=== PATIENT | male | born 1950 | race Caucasian/White ===

== ENCOUNTER 2020-02-01 02:37 | Inpatient (IN) | payer MEDICARE, SELFPAY ==
[2020-02-01] VITALS (15 sets, daily range): BP systolic 104–156; BP diastolic 52–86; PULSE 74–115; RESP 17–25; TEMP 36.4–38; O2SAT 92–99; BMI 22.3; BMI 11.0
--- NOTE | ~2020-02-01 | XR_ITS ---
EXAMINATION: XR chest 2V DATE: 02/01/2020 03:18 INDICATION: Transient alteration of awareness TECHNIQUE: frontal and lateral views of the chest were obtained. COMPARISON: Chest radiograph dated 08/29/2019 FINDINGS: The lungs remain clear with no focal airspace opacities, pulmonary edema, pleural effusion or pneumot horax. The cardiomediastinal silhouette is normal. Calcified left hilar lymph nodes consistent with o ld granulomatous disease. IMPRESSION: 1. No acute cardiopulmonary disease. Reviewed, dictated and finalized at location A.
--- NOTE | ~2020-02-01 | CT_ITS ---
EXAMINATION: CT brain wo con DATE: 02/01/2020 03:12 INDICATION: Altered mental status. TECHNIQUE: Computed tomography (CT) of the head was performed without intravenous contrast. Sagittal and coronal reconstructions were performed. The mA was adjusted according to patient size. Iterative reconstruction technique was employed. The dose-length product was 605.33 mGy-cm. COMPARISON: head CT dated 08/29/2019 FINDINGS: No acute intracranial hemorrhage, acute infarction or abnormal extra axial fluid collection. Unchange d symmetric increased prominence of the ventricles and to lesser degree the sulci. No mass/mass effec t. The orbits, paranasal sinuses and mastoid air cells are normal. IMPRESSION: 1. No acute intracranial process. 2. Chronic enlargement of the ventricles are proportionate the sulci which could be related to centra l predominant volume loss or normal pressure hydrocephalus (NPH: clinical triad ataxia/gait disturban ce, dementia, urinary incontinence). Reviewed, dictated and finalized at location A. IMPRESSION: 1. No acute intracranial process. 2. Chronic enlargement of the ventricles are proportionate the sulci which coul d be related to central predominant volume loss or normal pressure hydrocephalu s (NPH: clinical triad ataxia/gait disturbance, dementia, urinary incontinence) .
--- NOTE | 2020-02-01 02:41 | ED.AMS ---
HPI - Altered Mental Status General Chief Complaint: Altered Mental Status Stated Complaint: ams Time Seen by Provider: 02/01/20 02:41 Source: EMS Mode of arrival: EMS Limitations: altered mental status History of Present Illness HPI narrative: Patient is a 69-year-old male with a history of Parkinson's disease, dementia who presents for evaluation of worsening mentation. Per EMS report, they were called to [facility] where the patient resides as he is known to be pleasantly confused, but has increased lethargy, sleepiness, possibly an episode of decreased responsiveness. Per EMS, patient is intermittently oriented to person, not to place or time. Patient has had recent negative coronavirus testing. EMS glucose was in the 200s. Stable vital signs. Additional history from the patient cannot be obtained due to clinical condition. Related Data Home Medications Medication Instructions Recorded Confirmed Brilinta 90 mg PO BID 08/29/19 08/29/19 aspirin 81 mg PO DAILY 08/29/19 08/29/19 atorvastatin 40 mg PO HS 08/29/19 08/29/19 carbidopa-levodopa 1 tablet PO BID 08/29/19 08/29/19 carvedilol 6.25 mg PO BID 08/29/19 08/29/19 glimepiride 4 mg PO BID 08/29/19 08/29/19 metformin 1,000 mg PO BID 08/29/19 08/29/19 pantoprazole 40 mg PO DAILY 08/29/19 08/29/19 Allergies Allergy/AdvReac Type Severity Reaction Status Date / Time No Known Allergies Allergy Verified 02/01/20 03:10 Review of Systems Review of Systems: Narrative: Unable to obtain, secondary to clinical condition and altered mental status PMFSH Past Medical History Medical History Arthritis Diabetes Frequency of urination GERD (gastroesophageal reflux disease) Gum disease HLD (hyperlipidemia) [place] (hard of hearing) HTN (hypertension) Parkinson's disease Surgical History Surgical History History of cardiac catheterization With stents History of tonsillectomy Age 18 Skin lesion of back Removed Family History Family History Mother Diabetes mellitus Family history of cardiovascular disease Father Diabetes mellitus Family history of cardiovascular disease Social History Social History Smoking status: Never smoker Alcohol intake: former Substance use type: does not use Gender identity (if verbalized by the patient): Male Exam Narrative: Exam Narrative: GENERAL: Ill-appearing, awake, alert, slightly disheveled looking HEAD: Normocephalic, atraumatic. EYES: PERRLA and EOMI. ENT: Nares clear, no rhinorrhea or epistaxis. Mucous membranes moist. NECK: Supple. CHEST: Upper airway rhonchi, no respiratory distress, breathing even and non labored HEART: Tachycardic rate, sinus rhythm ABDOMEN:Non distended, non tender EXTREMITIES: Normal range of motion. No edema. SKIN: Warm, dry, no rash, pale. NEURO:No focal deficits. Alert and oriented x1. Able to state to nurse he is [facility], unable to provide orientation to place for pr at time of assessment. Course Vital Signs Vital signs: Vital Signs Temperature 37.1 C 02/01/20 02:43 Pulse Rate 109 H 02/01/20 02:43 Respiratory Rate 17 02/01/20 02:43 Blood Pressure 129/74 02/01/20 02:43 Pulse Oximetry 97 02/01/20 02:43 Temperature 37.1 C 02/01/20 02:43 Pulse Rate 106 H 02/01/20 03:31 Respiratory Rate 25 H 02/01/20 03:31 Blood Pressure 131/72 02/01/20 03:31 Pulse Oximetry 96 02/01/20 03:31 MDM - Altered Mental Status MDM Narrative Medical decision making narrative: Patient presenting for evaluation of worsening mentation at care facility. At the time of initial assessment, ABCs are intact and vital signs are stable. Patient is mildly tachycardic, afebrile. No hypotension. Patient is intermittently oriented to person and place.
--- NOTE | 2020-02-01 02:52 | ECG_ITS ---
Measurements Intervals [place] Rate: 108 P: 57 MA: 171 QRS: 15 QRSD: 86 T: 124 QT: 319 QTc: 428 Interpretive Statements SINUS TACHYCARDIA DELAYED PRECORDIAL R/S TRANSITION CONSIDER INFERIOR INFARCT, AGE INDETERMINATE ST-T WAVE ABNORMALITY IN HIGH LATERAL LEADS- CONSIDER ISCHEMIA BASELINE ARTIFACT- I, II, AVR, AVF ABNORMAL ECG Electronically Signed On 02-01-2020 7:14:02 CDT by Tai Lara D.O.
[2020-02-01] MEDS: SODIUM CHLORIDE 0.9% IV 1,000 ML 999 ML IV CONT (03:02)
[2020-02-01 03:38] LABS: Basophils Percent Auto 0.3 % (0.2-1.2); Eosinophils Percent Auto 0.1 % (0-4.4); Hematocrit 43.9 % (42.0-52.0); Hemoglobin 14.7 g/dL (14.0-18.0); Immature Granulocyte Absolute 0.12 K/mm3 (0.00-0.031); Immature Granulocyte Percent A 0.8 % (0-0.5); Lymphocytes Absolute Auto 0.94 K/mm3 (0.9-3.2); Lymphocytes Percent Auto 6.6 % (18.3-44.2); Mean Corpuscular HGB Conc 33.5 g/dl (32-36); Mean Corpuscular Hemoglobin 30.4 pg (26-34); Mean Corpuscular Volume 90.7 fl (80-100); Mean Platelet Volume 11.5 fl (7.4-10.4); Monocytes Absolute Auto 1.2 K/mm3 (0.1-0.6); Monocytes Percent Auto 8.1 % (2.6-8.5); Neutrophils Percent Auto 84.1 % (45.5-73.1); Platelet Count Result 197 k/mm3 (150-375); Red Blood Count 4.84 M/mm3 (4.6-6.20); Red Cell Distribution Width 13.6 % (11.5-14.5); White Blood Count 14.3 K/mm3 (4.5-10.0)
[2020-02-01 03:45] LABS: Add Urine Microscopic? YES; Appearance Urine Cloudy (Clear); Bacteria Urine Trace /hpf; Bilirubin Urine Negative (Negative); Blood Urine 3+ (Negative); Glucose Urine UA 2+ mg/dL (Negative); Ketones Urine Trace mg/dL (Negative); Leukocyte Esterase Ur Trace LEU/UL (Negative); Nitrate Urine Positive (Negative); Protein Urine 3+ mg/dL (Negative); RBC Urine >75 /hpf (0-2); Squamous Epithelial Cell Urine Moderate /hpf (Few); Urobilinogen Urine Negative mg/dL (<2.0); WBC Urine >75 /hpf
[2020-02-01 03:46] LABS: Color Urine Brown (Yellow)
[2020-02-01 03:47] LABS: INR 1.1
[2020-02-01 03:48] LABS: Partial Thromboplastin Time 30.1 SECONDS (22.3-36.8)
[2020-02-01 03:49] LABS: Ammonia < 9 umol/L (9-30); Lactic Acid Reflex 1.8 mmol/L (0.7-2.1)
[2020-02-01 03:50] LABS: Alanine Aminotransferase 17 U/L (4-50); Albumin Level 4.1 g/dL (3.5-5.1); Alkaline Phosphatase 83 U/L (38-126); Aspartate Amino Transferase 19 U/L (17-59); Bilirubin,Total 0.9 mg/dL (0.2-1.3); Blood Urea Nitrogen 14 mg/dL (9-20); Calcium 10.8 mg/dL (8.4-10.2); Carbon Dioxide 30 mmol/L (22-30); Chloride 100 mmol/L (98-107); Estimated CRCL calculation 77 ml/min; Estimated Glomerular Filt Rate > 60; Glucose 233 mg/dL (75-110); Potassium 4.4 mmol/L (3.4-5.0); Sodium 138 mmol/L (137-145)
--- NOTE | 2020-02-01 07:51 | ADMGEN ---
This patient, Toni Bernal, was admitted to [facility] Surg Room 332-01 at 0530. Patient/family oriented to hospital policies and general routines including ID bracelet, bed and alarms, visiting hours, pain management, procedures, bathroom and other care routines, personal items, smoking policy, room service/diet, and visiting hours. Valuables list has been completed. Information on how to activate the Rapid Response Team has been discussed. Patient/Family are encouraged to report perceived risks to care and to ask questions if they do not understand what they are told or what they should do.
[2020-02-01] MEDS: GLIMEPIRIDE 2 MG TABLET 4 MG PO ×2 (09:54→17:16)
[2020-02-01] MEDS: PANTOPRAZOLE 40 MG TABLET PO (09:54)
[2020-02-01] MEDS: metFORMIN HCL 500 MG TABLET 1000 MG PO ×2 (09:54→17:15)
[2020-02-01] MEDS: ASPIRIN 81 MG ENTERIC TABLET PO (09:55)
[2020-02-01] MEDS: POLYSACCHARIDE IRON COMPLEX 150 MG CAPSULE PO ×2 (09:55→17:15)
[2020-02-01] MEDS: carvediloL 6.25 MG TABLET PO ×2 (09:55→22:05)
[2020-02-01] MEDS: TICAGRELOR 90 MG TABLET PO ×2 (09:55→17:16)
[2020-02-01] MEDS: INSULIN ASPART (*BKC) 100 UNITS/ML SUB-Q ×3 (10:20→17:11)
--- NOTE | 2020-02-01 10:22 | PM.IMHP ---
H&P: HPI History of Present Illness Chief complaint: Lethargy, brown urine Narrative: Date of Service is 02/01/20 1000 The supervising physician for this history and physical is Dr. Zeynep Pacheco. Mr. Bernal is a 69-year-old male with history of Parkinson's disease with dementia, coronary artery disease, hypertension, hyperlipidemia and cio-[id number] type 2 diabetes mellitus presented to the ED from [facility] for evaluation of lethargy and brown-colored urine. This history is obtained mainly from the EMR as the patient is too confused to relay any details. It is mentioned that, given his dementia, he is normally pleasantly confused but talkative with [facility] at [facility]. He was noted to become more lethargic here recently and staff at the [facility] noted his urine was brown in color. Onset of symptoms is unclear. Urinalysis is grossly abnormal and routine labs demonstrate leukocytosis with WBC 14,300. Blood cultures and urine cultures were obtained and he was started on Rocephin empirically in the ED. Sepsis criteria was met on arrival with leukocytosis, tachycardia; suspected source is UTI. Chest x-ray demonstrates no acute cardiopulmonary abnormality. It is noted in the EMR that he recently tested negative for COVID-19, however I am not able to find any documentation of such. He was tested for COVID-19 early this morning in the ED. Patient is being admitted for altered mental status, sepsis, and UTI. Called and discussed update with TJ, patient's nephew and POA. Review of Systems Review of Systems: ROS unobtainable: Yes unobtainable due to mental status PMFSH Past Medical History Medical History (Updated 02/01/20 @ 12:48 by Xenia Zelaya PA-C) Arthritis Diabetes Frequency of urination GERD (gastroesophageal reflux disease) Gum disease HLD (hyperlipidemia) [place] (hard of hearing) HTN (hypertension) Parkinson's disease Surgical History Surgical History History of cardiac catheterization With stents History of tonsillectomy Age 18 Skin lesion of back Removed Family History Family History Mother Diabetes mellitus Family history of cardiovascular disease Father Diabetes mellitus Family history of cardiovascular disease Social History Social History Smoking status: Never smoker Alcohol intake: never Substance use: never Substance use type: does not use Gender identity (if verbalized by the patient): Male Spiritual care concerns: No Agree to blood products: Yes Meds Home Medications and Allergies Home Medications Medication Instructions Recorded Confirmed Type Brilinta 90 mg PO BID 08/29/19 02/01/20 History aspirin 81 mg PO DAILY 08/29/19 02/01/20 History atorvastatin 40 mg PO QPM 08/29/19 02/01/20 History carbidopa-levodopa [Sinemet] 1 tablet PO TIDWM 08/29/19 02/01/20 History carvedilol 6.25 mg PO BID 08/29/19 02/01/20 History glimepiride 4 mg PO BID 08/29/19 02/01/20 History metformin 1,000 mg PO BID 08/29/19 02/01/20 History pantoprazole 40 mg PO DAILY 08/29/19 02/01/20 History celecoxib [Celebrex] 200 mg PO QPM 02/01/20 02/01/20 History cyanocobalamin (vitamin B-12) 1,000 mcg IM DAILY 02/01/20 02/01/20 History fexofenadine [[place] Allergy] 60 mg PO Q12H 02/01/20 02/01/20 History polysaccharide iron complex 150 mg PO BID 02/01/20 02/01/20 History [Poly-Iron] Allergies Allergy/AdvReac Type Severity Reaction Status Date / Time No Known Allergies Allergy Verified 02/01/20 03:10 Vital Signs Vital Signs - 24 hr 02/01/20 02:43 02/01/20 03:18 02/01/20 03:31 Temperature 98.7 F Pulse Rate 109 H 106 H Respiratory Rate 17 25 H Blood Pressure 129/74 143/82 H 131/72 Pulse Oximetry 97 97 96 02/01/20 04:01 02/01/20 04:31 02/01/20 05:20 Temperature
[2020-02-01] MEDS: LACTATED RINGERS 1,000 ML 100 ML IV CONT ×2 (10:31→21:23)
[2020-02-01 10:40] LABS: Glucose Point of Care 224 (65-105)
[2020-02-01] MEDS: CARBIDOPA/LEVODOPA 25/100 MG TABLET 1 TABLET PO ×2 (11:58→17:17)
[2020-02-01 12:54] LABS: Glucose Point of Care 230 (65-105)
[2020-02-01 13:28] LABS: SARS-CoV-2 RNA PCR Negative
[2020-02-01 17:14] LABS: Glucose Point of Care 246 (65-105)
[2020-02-01] MEDS: CELECOXIB 200 MG CAPSULE PO (17:15)
[2020-02-01] MEDS: ATORVASTATIN 40 MG TABLET PO (17:16)
[2020-02-01 21:41] LABS: Glucose Point of Care 223 (65-105)
[2020-02-02] VITALS (9 sets, daily range): BP systolic 113–132; BP diastolic 57–67; PULSE 80–87; RESP 16–18; TEMP 36.5–37; O2SAT 96–97
[2020-02-02 06:20] LABS: Basophils Percent Auto 0.1 % (0.2-1.2); Eosinophils Absolute Auto 0.2 K/mm3 (0-0.3); Eosinophils Percent Auto 1.6 % (0-4.4); Hematocrit 34.4 % (42.0-52.0); Hemoglobin 11.4 g/dL (14.0-18.0); Immature Granulocyte Absolute 0.07 K/mm3 (0.00-0.031); Immature Granulocyte Percent A 0.7 % (0-0.5); Immature Platelet Fraction Pct 2.4 % (0.9-11.2); Lymphocytes Absolute Auto 0.91 K/mm3 (0.9-3.2); Lymphocytes Percent Auto 9.5 % (18.3-44.2); Mean Corpuscular HGB Conc 33.1 g/dl (32-36); Mean Corpuscular Hemoglobin 30.2 pg (26-34); Mean Platelet Volume 11.5 fl (7.4-10.4); Monocytes Absolute Auto 0.6 K/mm3 (0.1-0.6); Monocytes Percent Auto 6.6 % (2.6-8.5); Neutrophils Absolute Auto 7.8 K/mm3 (1.3-6.7); Neutrophils Percent Auto 81.5 % (45.5-73.1); Platelet Count Result 128 k/mm3 (150-375); Red Blood Count 3.78 M/mm3 (4.6-6.20); Red Cell Distribution Width 13.5 % (11.5-14.5); White Blood Count 9.6 K/mm3 (4.5-10.0)
[2020-02-02 06:33] LABS: Blood Urea Nitrogen 11 mg/dL (9-20); Calcium 9.8 mg/dL (8.4-10.2); Carbon Dioxide 28 mmol/L (22-30); Chloride 103 mmol/L (98-107); Estimated CRCL calculation 104 ml/min; Estimated Glomerular Filt Rate > 60; Glucose 161 mg/dL (75-110); Magnesium 1.4 mg/dL (1.6-2.3); Potassium 3.7 mmol/L (3.4-5.0); Sodium 135 mmol/L (137-145)
[2020-02-02] MEDS: CARBIDOPA/LEVODOPA 25/100 MG TABLET 1 TABLET PO ×3 (08:31→17:04)
[2020-02-02] MEDS: TICAGRELOR 90 MG TABLET PO ×2 (08:31→17:04)
[2020-02-02] MEDS: ASPIRIN 81 MG ENTERIC TABLET PO (08:31)
[2020-02-02] MEDS: PANTOPRAZOLE 40 MG TABLET PO (08:31)
[2020-02-02] MEDS: metFORMIN HCL 500 MG TABLET 1000 MG PO ×2 (08:31→17:05)
[2020-02-02] MEDS: GLIMEPIRIDE 2 MG TABLET 4 MG PO ×2 (08:32→17:04)
[2020-02-02] MEDS: carvediloL 6.25 MG TABLET PO ×2 (08:32→21:21)
[2020-02-02 08:41] LABS: Glucose Point of Care 148 (65-105)
[2020-02-02] MEDS: MAGNESIUM SULFATE 3GM/D5W100ML 3 GM/100 ML BAG IVPB (09:19)
[2020-02-02] MEDS: POLYSACCHARIDE IRON COMPLEX 150 MG CAPSULE PO ×2 (09:20→17:05)
[2020-02-02] MEDS: POTASSIUM PHOS/SODIUM PHOS 250 MG TABLET PO ×2 (09:20→17:05)
[2020-02-02 11:56] LABS: Glucose Point of Care 195 (65-105)
--- NOTE | 2020-02-02 12:18 | CONS_ITS ---
DATE OF CONSULTATION: 02/02/2020 HISTORY OF PRESENT ILLNESS: A 69-year-old has been admitted to [facility] for the complaint of lethargy with brown urine. The patient has additional history of: 1. Parkinson's disease. 2. Dementia. 3. Coronary artery disease. 4. Hypertension. 5. Hyperlipidemia. 6. Non insulin-dependent type 2 diabetes mellitus. He was admitted to the hospital on transfer from the [facility] for the evaluation of lethargy and brown-colored urine. On initial evaluation, he definitely was confused because of the underlying diagnosis, notedly lethargic. His UA was grossly abnormal. Blood cultures and urine cultures were drawn, and he was started on Rocephin. Chest x-ray was negative and he was recently tested negative for COVID-19 as well. He has ongoing history of multiple medical problems as mentioned in the chart, particularly arthritis, diabetes mellitus, bladder dysfunction, GERD, lung disease, hyperlipidemia, hard of hearing, hypertension, and Parkinson's disease. Neuro consultation has been obtained because of the ongoing diagnosis of Parkinson's disease. SOCIAL HISTORY: He is not a smoker and not a drinker. MEDICATIONS: At the time of admission in addition to all his other medication he was taking carbidopa levodopa 1 tablet 3 times a day. ALLERGIES: HE IS NOT ALLERGIC TO ANY MEDICATION. PHYSICAL EXAMINATION: VITAL SIGNS: On evaluation, he was afebrile with pulse 109, respirations 17, blood pressure 129/74, pulse ox 97%. HEENT: Head normocephalic with no cranial bruits. Ear, nose, throat examination normal. NECK: Supple with no cervical bruits. HEART: Regular with no murmur. LUNGS: Clear to auscultation. ABDOMEN: Soft with normal bowel sounds. SKIN: Normal. NEUROLOGICAL: He was awake, alert, but was unable to give any account of what happened to him. His speech was rather slow, hesitant. Pupils round, regular. George of vision full. Extraocular movements full with no nystagmus, no upward gaze limitation. Face symmetrical. Tongue midline. Uvula midline. Motor examination revealed him to have cogwheeling in upper and lower extremities. Reflexes were sluggish. Plantars were downgoing. There was no evidence of gross cerebellar deficit, though the exam was rather limited. IMPRESSION: Ongoing history of Parkinson's disease for which the patient is taking the Sinemet, that is carbidopa levodopa 1 tab 3 times a day. Treatment will be continued as such. In addition, all other medication will follow through and see if any adjustment necessary. FABI MORTON M.D. TICKET ATTENDANT TICKET ATTENDANT D I MT: Saurabh
[2020-02-02] MEDS: LACTATED RINGERS 1,000 ML 100 ML IV CONT (12:42)
--- NOTE | 2020-02-02 12:58 | P.PNIM_ITS ---
Progress Note: A&P Assessment and Plan (1) Acute UTI: Code(s): N39.0 - Urinary tract infection, site not specified Status: Acute Assessment and Plan: * Patient presents with increased confusion, lethargy, brown-colored urine from the correction. * Urine culture grew E coli, sensitivities pending. Blood cultures with no growth to date. * Continue Rocephin (day 3). (2) Sepsis: Qualifiers: Sepsis acute organ dysfunction status: without acute organ dysfunction Sepsis type: sepsis due to unspecified organism Qualified Code(s): A41.9 - Sepsis, unspecified organism Code(s): A41.9 - Sepsis, unspecified organism Status: Acute Assessment and Plan: * Evident on arrival by tachycardia, leukocytosis. Afebrile so far today. Monitor vital signs and urine output. * Lactic acid within normal limits. COVID-19 testing negative. (3) Delirium: Code(s): R41.0 - Disorientation, unspecified Status: Resolved Assessment and Plan: * Increased lethargy superimposed on baseline dementia, felt to be secondary to above. Now improved today. * CT brain shows no acute intracranial findings, chronic enlargement of ventricles could be related to central predominant volume loss or ? NPH. He does not have a previous diagnosis of NPH but has had longstanding dementia with Parkinson's disease. These CT findings may just be consistent with his known diagnoses. * Neurology consulted - appreciate recommendations. * Neurologist is Dr Jayshree Macias at [facility] and was last seen there May 2019 - requested to obtain records. (4) Parkinson's disease: Code(s): G20 - Parkinson's disease Status: Chronic Assessment and Plan: * With dementia. Reportedly his baseline is alert and oriented to self, intermittently oriented to place. * Maintained on his home carbidopa-levodopa. PT/OT note that he is functioning at his baseline. 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 Continue home metformin and glimepiride, monitor Accu- Cheks and cover with SSI. Check A1c in AM. (6) Hypertension: Qualifiers: Hypertension type: essential hypertension Qualified Code(s): I10 - Essential (primary) hypertension Code(s): I10 - Essential (primary) hypertension Status: Chronic Assessment and Plan: * BP 127/65, continue home Coreg and monitor BP. (7) Coronary artery disease: Qualifiers: Associated angina: without angina Coronary Disease-Associated Artery/Lesion type: [place] artery [place] vs. transplanted heart: [place] heart Qualified Code(s): I25.10 - Atherosclerotic heart disease of [place] coronary art julian without angina pectoris Code(s): I25.10 - Atherosclerotic heart disease of [place] coronary artery without angina pectoris Status: Acute Assessment and Plan: * History of coronary stenting. Stable, he denies any chest pain this morning. * He remains on ASA and Brilinta. (8) DVT prophylaxis: Code(s): Z
--- NOTE | 2020-02-02 12:58 | PM.IMPN ---
Progress Note: A&P Assessment and Plan (1) Acute UTI: Code(s): N39.0 - Urinary tract infection, site not specified Status: Acute Assessment and Plan: Patient presents with increased confusion, lethargy, brown-colored urine from the retirement. Urine culture grew E coli, sensitivities pending. Blood cultures with no growth to date. Continue Rocephin (day 3). (2) Sepsis: Qualifiers: Sepsis acute organ dysfunction status: without acute organ dysfunction Sepsis type: sepsis due to unspecified organism Qualified Code(s): A41.9 - Sepsis, unspecified organism Code(s): A41.9 - Sepsis, unspecified organism Status: Acute Assessment and Plan: Evident on arrival by tachycardia, leukocytosis. Afebrile so far today. Monitor vital signs and urine output. Lactic acid within normal limits. COVID-19 testing negative. (3) Delirium: Code(s): R41.0 - Disorientation, unspecified Status: Resolved Assessment and Plan: Increased lethargy superimposed on baseline dementia, felt to be secondary to above. Now improved today. CT brain shows no acute intracranial findings, chronic enlargement of ventricles could be related to central predominant volume loss or ? NPH. He does not have a previous diagnosis of NPH but has had longstanding dementia with Parkinson's disease. These CT findings may just be consistent with his known diagnoses. Neurology consulted - appreciate recommendations. Neurologist is Dr Jayshree Macias at [facility] and was last seen there May 2019 - requested to obtain records. (4) Parkinson's disease: Code(s): G20 - Parkinson's disease Status: Chronic Assessment and Plan: With dementia. Reportedly his baseline is alert and oriented to self, intermittently oriented to place. Maintained on his home carbidopa-levodopa. PT/OT note that he is functioning at his baseline. 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 Continue home metformin and glimepiride, monitor Accu-Cheks and cover with SSI. Check A1c in AM. (6) Hypertension: Qualifiers: Hypertension type: essential hypertension Qualified Code(s): I10 - Essential (primary) hypertension Code(s): I10 - Essential (primary) hypertension Status: Chronic Assessment and Plan: BP 127/65, continue home Coreg and monitor BP. (7) Coronary artery disease: Qualifiers: Associated angina: without angina Coronary Disease-Associated Artery/Lesion type: [place] artery [place] vs. transplanted heart: [place] heart Qualified Code(s): I25.10 - Atherosclerotic heart disease of [place] coronary artery without angina pectoris Code(s): I25.10 - Atherosclerotic heart disease of [place] coronary artery without angina pectoris Status: Acute Assessment and Plan: History of coronary stenting. Stable, he denies any chest pain this morning. He remains on ASA and Brilinta. (8) DVT prophylaxis: Code(s): Z29.9 - Encounter for prophylactic measures, unspecified Status: Acute Assessment and Plan: SCDs. Pharmacologic prophylaxis would put at greater risk for bleeding given his dual anti-platelet therapy. Subjective Date/time seen: 02/02/20 12:30 Interval history: Mr. Bernal is a 69yo M with Parkinson's dementia admitted for UTI. He is much more awake and more talkative toda
[2020-02-02] MEDS: ATORVASTATIN 40 MG TABLET PO (17:04)
[2020-02-02] MEDS: CELECOXIB 200 MG CAPSULE PO (17:05)
[2020-02-02 17:53] LABS: Glucose Point of Care 112 (65-105)
[2020-02-02 21:24] LABS: Glucose Point of Care 131 (65-105)
[2020-02-03] MEDS: LACTATED RINGERS 1,000 ML 100 ML IV CONT (00:49)
[2020-02-03 02:00] VITALS: BP 132/70; PULSE 79; RESP 18; TEMP 36.6; O2SAT 97
[2020-02-03 02:39] VITALS: PULSE 82; RESP 18; O2SAT 100
[2020-02-03 06:00] VITALS: BP 144/72; PULSE 84; RESP 18; TEMP 36.6; O2SAT 98
[2020-02-03 07:38] LABS: Hematocrit 33.6 % (42.0-52.0); Hemoglobin 11.5 g/dL (14.0-18.0); Mean Corpuscular HGB Conc 34.2 g/dl (32-36); Mean Corpuscular Hemoglobin 30.9 pg (26-34); Mean Corpuscular Volume 90.3 fl (80-100); Mean Platelet Volume 10.7 fl (7.4-10.4); Platelet Count Result 114 k/mm3 (150-375); Red Blood Count 3.72 M/mm3 (4.6-6.20); Red Cell Distribution Width 13.3 % (11.5-14.5); White Blood Count 5.7 K/mm3 (4.5-10.0)
[2020-02-03 07:51] LABS: Blood Urea Nitrogen 8 mg/dL (9-20); Calcium 9.9 mg/dL (8.4-10.2); Carbon Dioxide 26 mmol/L (22-30); Chloride 105 mmol/L (98-107); Estimated CRCL calculation 123 ml/min; Estimated Glomerular Filt Rate > 60; Glucose 174 mg/dL (75-110); Magnesium 1.9 mg/dL (1.6-2.3); Phosphorus 2.8 mg/dL (2.5-4.5); Potassium 4.1 mmol/L (3.4-5.0); Sodium 134 mmol/L (137-145)
[2020-02-03 07:59] LABS: Glucose Point of Care 155 (65-105)
[2020-02-03] MEDS: metFORMIN HCL 500 MG TABLET 1000 MG PO (08:46)
[2020-02-03] MEDS: POTASSIUM PHOS/SODIUM PHOS 250 MG TABLET PO (08:46)
[2020-02-03] MEDS: carvediloL 6.25 MG TABLET PO (08:46)
[2020-02-03] MEDS: ASPIRIN 81 MG ENTERIC TABLET PO (08:46)
[2020-02-03] MEDS: TICAGRELOR 90 MG TABLET PO (08:46)
[2020-02-03] MEDS: POLYSACCHARIDE IRON COMPLEX 150 MG CAPSULE PO (08:47)
[2020-02-03] MEDS: CARBIDOPA/LEVODOPA 25/100 MG TABLET 1 TABLET PO ×2 (08:47→11:58)
[2020-02-03] MEDS: PANTOPRAZOLE 40 MG TABLET PO (08:47)
[2020-02-03] MEDS: GLIMEPIRIDE 2 MG TABLET 4 MG PO (08:47)
[2020-02-03 10:00] VITALS: BP 145/78; PULSE 77; RESP 18; TEMP 36.7; O2SAT 98
--- NOTE | 2020-02-03 11:21 | PM.DS ---
DS: Diagnosis Admitting Diagnosis Admitting Diagnosis: Urinary tract infection, site not specified Discharge Diagnosis (1) Acute UTI: Code(s): N39.0 - Urinary tract infection, site not specified Status: Acute Assessment and Plan: Date of Service 02/03/20 Mr. Bernal is a 69yo M with history of type 2 diabetes mellitus, hypertension, coronary artery disease, and Parkinson's with dementia who presented to the ED from [facility] for evaluation because staff noted him to be more lethargic and have brown-colored urine. He was encephalopathic and lethargic on arrival. He was found to have a urinary tract infection and urine culture grew E coli. He was treated with 4 days of IV ceftriaxone and discharged with oral levaquin to complete the course. His mentation was much improved and back at what seems to be his baseline prior to discharge. He is talkative and joking today, answers most questions appropriately but not oriented to place or time. He was hemodynamically stable for discharge 02/03/20 to be seen by [facility] provider within 1 week. COVID-19 testing negative on 02/01/20. Patient presents with increased confusion, lethargy, brown-colored urine from the [facility]. Urine culture grew E coli, Blood cultures with no growth to date, will follow to final. IV rocephin x 4, discharged with oral Levaquin. (2) Sepsis: Qualifiers: Sepsis acute organ dysfunction status: without acute organ dysfunction Sepsis type: sepsis due to unspecified organism Qualified Code(s): A41.9 - Sepsis, unspecified organism Code(s): A41.9 - Sepsis, unspecified organism Status: Resolved Assessment and Plan: Evident on arrival by tachycardia, leukocytosis. Lactic acid within normal limits. COVID-19 testing negative. (3) Delirium: Code(s): R41.0 - Disorientation, unspecified Status: Resolved Assessment and Plan: Increased lethargy superimposed on baseline dementia, felt to be secondary to above. Now improved with antibiotics. CT brain shows no acute intracranial findings, chronic enlargement of ventricles could be related to central predominant volume loss or ? NPH. He does not have a previous diagnosis of NPH but has had longstanding dementia with Parkinson's disease. These CT findings may just be consistent with his known diagnoses. Neurologist is Dr Jayshree Macias at [facility] and was last seen there May 2019. Continue to follow up with his established neurologist. (4) Parkinson's disease: Code(s): G20 - Parkinson's disease Status: Chronic Assessment and Plan: With dementia. Reportedly his baseline is alert and oriented to self, intermittently oriented to place. Maintained on his home carbidopa-levodopa. PT/OT note that he is functioning at his baseline. (5) Diabetes mellitus: Qualifiers: Diabetes mellitus type: type 2 Diabetes mellitus alf insulin use: without terminal makeup operator use Diabetes mellitus complication status: without complication Qualified Code(s): E11.9 - Type 2 diabetes mellitus without complications Code(s): E11.9 - Type 2 diabetes mellitus without complications Status: Acute Assessment and Plan: Maintained on his home metformin and glimepiride. Continue to monitor blood sugars at the [facility]. (6) Hypertension: Qualifiers: Hypertension type: essential hypertension Qualified Code(s): I10 - Essential (primary) hypertension Code(s): I10 - Essential (primary) hypertension Status: Chronic Assessment and Plan: Stable maintained on home Coreg and monitor BP. (7) Coronary artery disease: Qualifiers: Coronary Disease-Associated Artery/Lesion type: [place]
[2020-02-03] MEDS: INSULIN ASPART (*BKC) 100 UNITS/ML SUB-Q (11:58)
--- NOTE | 2020-02-03 12:31 | WPDNEUROPN ---
Progress Note: A&P Assessment and Plan (1) Coronary artery disease: Qualifiers: Coronary Disease-Associated Artery/Lesion type: [place] artery [place] vs. transplanted heart: [place] heart Associated angina: without angina Qualified Code(s): I25.10 - Atherosclerotic heart disease of [place] coronary artery without angina pectoris Code(s): I25.10 - Atherosclerotic heart disease of [place] coronary artery without angina pectoris Status: Acute (2) HLD (hyperlipidemia): Qualifiers: Hyperlipidemia type: unspecified Qualified Code(s): E78.5 - Hyperlipidemia, unspecified Code(s): E78.5 - Hyperlipidemia, unspecified Status: Acute (3) Sepsis: Qualifiers: Sepsis acute organ dysfunction status: without acute organ dysfunction Sepsis type: sepsis due to unspecified organism Qualified Code(s): A41.9 - Sepsis, unspecified organism Code(s): A41.9 - Sepsis, unspecified organism Status: Acute (4) Acute UTI: Code(s): N39.0 - Urinary tract infection, site not specified Status: Acute (5) Delirium: Code(s): R41.0 - Disorientation, unspecified Status: Resolved (6) DVT prophylaxis: Code(s): Z29.9 - Encounter for prophylactic measures, unspecified Status: Acute (7) Hypertension: Qualifiers: Hypertension type: essential hypertension Qualified Code(s): I10 - Essential (primary) hypertension Code(s): I10 - Essential (primary) hypertension Status: Chronic (8) Parkinson's disease: Code(s): G20 - Parkinson's disease Status: Chronic (9) Diabetes mellitus: Qualifiers: Diabetes mellitus type: type 2 Diabetes mellitus [facility] insulin use: without [facility] use Diabetes mellitus complication status: without complication Qualified Code(s): E11.9 - Type 2 diabetes mellitus without complications Code(s): E11.9 - Type 2 diabetes mellitus without complications Status: Acute (10) Elevated troponin: Code(s): R79.89 - Other specified abnormal findings of blood chemistry Status: Acute (11) Weakness: Code(s): R53.1 - Weakness Status: Acute Additional Plan stable question spinal tap Review of Systems Review of Systems: All systems reviewed & are unremarkable except as noted in HPI and below Exam Const: General: cooperative, comfortable and no acute distress Nutritional Appearance: average body habitus Eyes: General: appearance normal, both eyes and all related structures Alignment and Position: alignment normal Periorbital: periorbital findings normal Eyelids: eyelids normal Conjunctivae: conjunctivae normal Sclera: sclerae normal Pupils: Equal, round and reactive pupils present EOM: EOMs intact bilaterally Neck: Neck: full ROM Resp: Effort & Inspection: normal respiratory effort Auscultation: clear to auscultation bilaterally Cardio: Rate: regular rate Rhythm: regular rhythm GI: Auscultation: normal bowel sounds Skin: General skin exam: no rashes or lesions noted Neuro: General: oriented to person, moves all extremities and no focal motor deficits Cranial nerves: Yes Nystagmus not present Speech: normal speech Gait exam (Neuro): Unable to assess gait Motor exam (neuro): 5/5 motor strength present throughout (generally decreased) and Motor abnormalities not present Sensory Exam: normal sensation Deep tendon reflexes (DTR's): Right triceps reflex intensity grade: 1+, Left triceps reflex intensity grade: 1+, Rt Biceps (C5, C6): 1+, Left biceps reflex intensity grade: 1+, Right brachioradialis reflex intensity grade: 1+, Left brachioradialis reflex intensity grade: 1+, Right patellar reflex intensity grade: 1+, Left patellar reflex intensity grade: 1+, Right ankle reflex intensity grade: 1+ and Left ankle reflex intensity grade: 1+ Plantar Reflex Responses: equivocal: bilateral Psych: Affect: normal affect Attitude: cooperative Thought pr
--- NOTE | 2020-02-03 13:49 | PC.NURSE ---
called report to reanna morales and faxed chart to marcin
[2020-02-03 14:00] VITALS: BP 163/76; PULSE 82; RESP 18; TEMP 36.7; O2SAT 98
[2020-02-03 17:23] LABS: Glucose Point of Care 214 (65-105)
== END 2020-02-03 14:30 | DRG 872 ==
LOC: ANHED 03:58 → ANH3MEDSUR 04:38
PROVIDERS: Physician Assistant; Admitting Provider Internal Medicine; Emergency Provider Emergency Medicine; PCP Family Medicine Adolescent Medicine; Visit Provider Hospitalist
DX: A41.9 Sepsis, unspecified organism (principal); N39.0 Urinary tract infection, site not specified; B96.20 Unspecified Escherichia coli [E. coli] as the cause of diseases classified elsewhere; G20 Parkinson's disease; F02.80 Dementia in other diseases classified elsewhere, unspecified severity, without behavioral disturbance, psychotic disturbance, mood disturbance, and anxiety; E11.9 Type 2 diabetes mellitus without complications; E78.5 Hyperlipidemia, unspecified; I25.10 Atherosclerotic heart disease of native coronary artery without angina pectoris; R41.0 Disorientation, unspecified; I10 Essential (primary) hypertension; K21.9 Gastro-esophageal reflux disease without esophagitis; M19.90 Unspecified osteoarthritis, unspecified site; H91.90 Unspecified hearing loss, unspecified ear; R53.1 Weakness; Z11.59 Encounter for screening for other viral diseases; Z79.82 Long term (current) use of aspirin; Z79.84 Long term (current) use of oral hypoglycemic drugs; Z79.899 Other long term (current) drug therapy; Z95.5 Presence of coronary angioplasty implant and graft
CPT/HCPCS: 36415; 51701; 70450; 71046; 80048; 80053; 81001; 82140; 83605; 83735; 84100; 85025; 85027; 85055; 85610; 85730; 87040; 87077; 87086; 87088; 87186; 87635; 93005; 96361; 96365; 96366; 96375; 97161; 97165; 99285; A9270; G0378; J0131; J0696; J1815; J3475; J7030; J7120; U0003

== ENCOUNTER 2020-02-23 12:45 | Inpatient (IN) | payer MEDICARE, SELFPAY ==
[2020-02-23] VITALS (7 sets, daily range): BP systolic 115–150; BP diastolic 59–65; PULSE 82–92; RESP 16–23; TEMP 36.7–37.1; O2SAT 97–99; BMI 27.2
--- NOTE | ~2020-02-23 | MR_ITS ---
EXAMINATION: MR brain/brain stem wo/w con DATE: 02/23/2020 19:58 INDICATION: Parkinson's disease. TECHNIQUE: Magnetic resonance imaging (MRI) of the brain and brainstem was performed without and with 14 cc MultiHance intravenous contrast. Sequences included sagittal and axial T1-weighted SE, axial d iffusion-weighted FS SE, axial T2*-weighted GRE, axial T2-weighted FLAIR Propeller, and axial T2-weig hted Propeller. Apparent diffusion coefficient (ADC) maps were created. COMPARISON: Comparison to multiple prior studies sequentially, with oldest reviewed study dated 02/2018. . FINDINGS: Generalized atrophy. There are scattered mild periventricular and subcortical white matter changes, most likely related to small vessel ischemic disease (microangiopathy). There is hydrocephal us ex vacuo. No acute intracranial hemorrhage, infarction, mass or mass effect. No abnormal contrast enhancement. Paranasal sinuses are unremarkable. Structures of the posterior fossa including 7/8th cr anial nerve complexes within normal limits. Orbits are symmetric without disconjugate gaze. IMPRESSION: 1. No acute intracranial abnormality. 2: Chronic age-related findings. Reviewed, dictated and finalized at location A.
--- NOTE | ~2020-02-23 | XR_ITS ---
EXAMINATION: XR chest 2V DATE: 02/23/2020 14:13 INDICATION: Altered mental status. Weakness. TECHNIQUE: Frontal and lateral views of the chest were obtained. COMPARISON: Chest 2 views 02/01/2020 FINDINGS: The chest demonstrates clear lungs without pneumonia, pleural effusion, or pneumothorax. Th e heart size is normal. Calcified left hilar lymph nodes are consistent with old granulomatous diseas e. IMPRESSION: 1. No acute cardiopulmonary disease. Reviewed, dictated and finalized at location A.
--- NOTE | ~2020-02-23 | MR_ITS ---
EXAMINATION: MR cervical spine wo con DATE: 02/24/2020 18:00 INDICATION: Cervicalgia and lower extremity weakness. TECHNIQUE: Magnetic resonance imaging (MRI) of the cervical spine was performed without intravenous c ontrast. Sequences included sagittal T2-weighted FSE, sagittal T2-weighted FS FSE, sagittal T1-weight ed FSE, axial MERGE and axial T2-weighted FSE. COMPARISON: 02/06/2018 FINDINGS: Mild motion blurring on a few of the sequences which only minimally limits evaluation. Unchanged 2 mm anterolisthesis T1 on T2. Vertebral body heights are normal. Bone marrow signal intensity is jazlyn l. Cervical disc heights are normal. Mild disc height loss at T2-T3 and T3-T4. Cord signal intensity is normal. Cervical soft tissues are unremarkable. The following disc levels are specifically discuss ed: C2-C3: The disc does not extend beyond the endplate margin. There is mild left and moderate right unc overtebral joint osteoarthritis. There is mild to moderate left and severe right facet joint osteoart hritis. There is moderate right and no left neural foraminal stenosis. There is no central canal sten osis. C3-C4: The disc does not extend beyond the endplate margin. There is mild bilateral uncovertebral rosalba nt osteoarthritis. There is mild left and severe right facet joint osteoarthritis. There is mild to m oderate right and no left neural foraminal stenosis. There is no central canal stenosis. C4-C5: Disc is mildly bulging. There is mild left and mild to moderate right uncovertebral joint oste oarthritis. There is moderate to severe bilateral facet joint osteoarthritis. There is mild bilateral neural foraminal stenosis. There is mild central canal stenosis. C5-C6: Disc is mildly bulging. There is mild bilateral uncovertebral joint osteoarthritis. There is m ild right and moderate left facet joint osteoarthritis. There is mild left neural foraminal stenosis. There is minimal central canal stenosis. C6-C7: Disc is mildly bulging. There is mild bilateral uncovertebral joint osteoarthritis. There is m ild to moderate bilateral facet joint osteoarthritis. There is mild left neural foraminal stenosis. T here is mild central canal stenosis. C7-T1: The disc does not extend beyond the endplate margin. There is no uncovertebral joint osteoarth ritis. There is mild to moderate bilateral facet joint osteoarthritis. There is mild left neural fora amira stenosis. There is no central canal stenosis. IMPRESSION: 1. Interval progression of now mild to moderate cervical spondylosis. Reviewed, dictated and finalized at location A.
--- NOTE | ~2020-02-23 | CT_ITS ---
EXAMINATION: CT brain wo con INDICATION: Confusion COMPARISON: 02/01/2020 TECHNIQUE: Standard unenhanced head CT. The dose-length product (DLP) was 605.33 mGy-cm. The mA was a djusted according to patient size. Iterative reconstruction technique was employed. FINDINGS: There is no acute intraparenchymal hemorrhage. No evidence of mass lesion. No evidence of a cute infarction. There is moderate periventricular and subcortical hypodensity probably related to sm all vessel ischemic disease. There is moderate prominence of the sulci and ventricles related to cere bral atrophy. Intracranial calcified cerebral atherosclerosis is noted. There are no extra-axial akua ections. There is no mass effect or midline shift. The orbits and soft tissues are unremarkable. The visualized sinuses and mastoid air cells are well aerated. IMPRESSION: 1. No acute intracranial abnormality. 2. Age related findings. Reviewed, dictated and finalized at location A.
[2020-02-23 13:01] LABS: Glucose Point of Care 253 (65-105)
--- NOTE | 2020-02-23 13:12 | ED.NEUROSD ---
HPI - Neuro Symptoms/Deficit General Chief Complaint: Suspected CVA Stated Complaint: weak Time Seen by Provider: 02/23/20 13:02 Source: patient and EMS Mode of arrival: EMS Limitations: dementia History of Present Illness HPI Narrative: Patient is a 69-year-old male with a history of Parkinson's dementia, recent UTI discharged from this facility, who presented for evaluation of possible weakness. Per EMS crew, family was concerned the patient was less alert than normal, had weakness of the right side, with right-sided facial droop, listing to the right, unable to support himself this morning. At the time of evaluation, patient is alert and oriented to person and place. He is not drowsy. There is no facial droop. No gross neurological deficit on exam. Additional history limited due to the patient's dementia and history cannot be obtained. Related Data Home Medications Medication Instructions Recorded Confirmed Brilinta 90 mg PO BID 08/29/19 02/01/20 aspirin 81 mg PO DAILY 08/29/19 02/01/20 atorvastatin 40 mg PO QPM 08/29/19 02/01/20 carbidopa-levodopa [Sinemet] 1 tablet PO TIDWM 08/29/19 02/01/20 carvedilol 6.25 mg PO BID 08/29/19 02/01/20 glimepiride 4 mg PO BID 08/29/19 02/01/20 metformin 1,000 mg PO BID 08/29/19 02/01/20 pantoprazole 40 mg PO DAILY 08/29/19 02/01/20 celecoxib [Celebrex] 200 mg PO QPM 02/01/20 02/01/20 cyanocobalamin (vitamin B-12) 1,000 mcg IM DAILY 02/01/20 02/01/20 fexofenadine [[place] Allergy] 60 mg PO Q12H 02/01/20 02/01/20 polysaccharide iron complex 150 mg PO BID 02/01/20 02/01/20 [Poly-Iron] Allergies Allergy/AdvReac Type Severity Reaction Status Date / Time No Known Allergies Allergy Verified 02/01/20 03:10 Review of Systems Review of Systems: ROS unobtainable: Yes unobtainable due to medical condition PMFSH Past Medical History Medical History Arthritis Diabetes Frequency of urination GERD (gastroesophageal reflux disease) Gum disease HLD (hyperlipidemia) [place] (hard of hearing) HTN (hypertension) Parkinson's disease Surgical History Surgical History History of cardiac catheterization With stents History of tonsillectomy Age 18 Skin lesion of back Removed Family History Family History Mother Diabetes mellitus Family history of cardiovascular disease Father Diabetes mellitus Family history of cardiovascular disease Social History Social History Smoking status: Never smoker Alcohol intake: never Substance use: never Substance use type: does not use Gender identity (if verbalized by the patient): Male Spiritual care concerns: No Agree to blood products: Yes Exam Narrative: Exam Narrative: GENERAL: Awake, alert, conversant HEAD: Normocephalic, atraumatic. EYES: PERRLA and EOMI. ENT: Nares clear, no rhinorrhea or epistaxis. Mucous membranes moist. NECK: Supple. CHEST: No respiratory distress, breathing even and non labored HEART: Regular rate, sinus rhythm ABDOMEN:Non distended, non tender EXTREMITIES: Normal range of motion. No edema. SKIN: Warm, dry, no rash. NEURO:No focal deficits. Alert and oriented x2, [id number] testing intact, slowed bilaterally but no dysmetria. No facial droop. 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 Shoulder shrug is intact and symmetric bilaterally. Patient able to raise both lower extremities on command, 5 out of 5 strength against gravity. Course Vital Signs Vital signs: Vital Signs Temperature 37.1 C 02/23/20 12:56 Pulse Rate 89 02/23/20 12:56 Respiratory Rate 23 H 02/23/20 12:56 Blood Pressure 134/63 02/23/20 12:56 Pulse Oximetry 98 02/23/20 12:56 Temperature 37.1 C 02/23/20 12:56 Pulse Rate 92 02/23/20 12:56 Respiratory Rate 20 02/23/20 12:56 Blood Pressure 117
--- NOTE | 2020-02-23 13:14 | ECG_ITS ---
Measurements Intervals [place] Rate: 87 P: 54 IL: 208 QRS: -65 QRSD: 93 T: 152 QT: 340 QTc: 411 Interpretive Statements SINUS RHYTHM WITH FIRST DEGREE AV BLOCK LEFT AXIS DEVIATION ANTEROSEPTAL INFARCT, AGE INDETERMINATE ST-T WAVE ABNORMALITY IN HIGH LATERAL LEADS- CONSIDER ISCHEMIA ABNORMAL ECG Electronically Signed On 02-23-2020 13:26:11 CDT by Tai Lara D.O.
[2020-02-23] MEDS: SODIUM CHLORIDE 0.9% IV 1,000 ML 999 ML IV CONT (13:38)
[2020-02-23 13:45] LABS: Alveolar/Arterial O2 Gradient 19.8 mmHg; Base Excess ABG 0.3 mEq/l (+/-2.0); Device ROOM AIR; Fractional Inspired Oxygen 21 %; HCO3 ABG 23.6 mEq/l (22.0-26.0); Oxygen Content ABG 17.5 %vol (16.0-22.0); Oxygen Saturation ABG 97.3 % (95.0-100.0); Oxyhemoglobin 95.3 % THb (90.0-100.0); PCO2 ABG 34.1 mmHg (35.0-45.0); PO2 ABG 89.1 mmHg (80.0-100.0); PO2 FiO2 Ratio Arterial Blood 4.24 %; Site Drawn RIGHT BRACHIAL; pH ABG 7.458 (7.350-7.450)
[2020-02-23 13:47] LABS: Basophils Percent Auto 0.3 % (0.2-1.2); Eosinophils Absolute Auto 0.2 K/mm3 (0-0.3); Eosinophils Percent Auto 2.2 % (0-4.4); Hematocrit 39.6 % (42.0-52.0); Hemoglobin 13.2 g/dL (14.0-18.0); Immature Granulocyte Absolute 0.05 K/mm3 (0.00-0.031); Immature Granulocyte Percent A 0.7 % (0-0.5); Lymphocytes Absolute Auto 0.56 K/mm3 (0.9-3.2); Lymphocytes Percent Auto 8.3 % (18.3-44.2); Mean Corpuscular HGB Conc 33.3 g/dl (32-36); Mean Corpuscular Hemoglobin 30.1 pg (26-34); Mean Corpuscular Volume 90.2 fl (80-100); Monocytes Absolute Auto 0.7 K/mm3 (0.1-0.6); Monocytes Percent Auto 10.3 % (2.6-8.5); Neutrophils Absolute Auto 5.3 K/mm3 (1.3-6.7); Neutrophils Percent Auto 78.2 % (45.5-73.1); Platelet Count Result 165 k/mm3 (150-375); Red Blood Count 4.39 M/mm3 (4.6-6.20); Red Cell Distribution Width 14.7 % (11.5-14.5); White Blood Count 6.7 K/mm3 (4.5-10.0)
[2020-02-23 13:59] LABS: Partial Thromboplastin Time 23.6 SECONDS (22.3-36.8)
[2020-02-23 14:04] LABS: Ammonia < 9 umol/L (9-30)
[2020-02-23 14:05] LABS: Alanine Aminotransferase 6 U/L (4-50); Alkaline Phosphatase 79 U/L (38-126); Aspartate Amino Transferase 14 U/L (17-59); Blood Urea Nitrogen 12 mg/dL (9-20); Calcium 10.6 mg/dL (8.4-10.2); Carbon Dioxide 28 mmol/L (22-30); Chloride 98 mmol/L (98-107); Estimated CRCL calculation 77 ml/min; Estimated Glomerular Filt Rate > 60; Glucose 262 mg/dL (75-110); Potassium 4.1 mmol/L (3.4-5.0); Sodium 134 mmol/L (137-145)
[2020-02-23 14:06] LABS: Lactic Acid Reflex 2.9 mmol/L (0.7-2.1)
[2020-02-23 14:15] LABS: Troponin I 0.027 ng/mL (0.000-0.034)
[2020-02-23 15:43] LABS: Add Urine Microscopic? YES; Appearance Urine Cloudy (Clear); Bacteria Urine 4+ /hpf; Bilirubin Urine Negative (Negative); Blood Urine 2+ (Negative); Color Urine Yellow (Yellow); Glucose Urine UA 2+ mg/dL (Negative); Ketones Urine Negative (Negative); Leukocyte Esterase Ur 3+ LEU/UL (Negative); Mucus Urine Rare /lpf; Nitrate Urine Negative (Negative); Protein Urine 1+ mg/dL (Negative); RBC Urine 21-50 /hpf (0-2); Specific Grav Ur 1.014 (1.001-1.035); Squamous Epithelial Cell Urine Occasional /hpf (Few); WBC Urine >75 /hpf
--- NOTE | 2020-02-23 15:59 | ECG_ITS ---
Measurements Intervals [place] Rate: 84 P: 33 MS: 186 QRS: 7 QRSD: 97 T: 152 QT: 354 QTc: 419 Interpretive Statements SINUS RHYTHM CANNOT RULE OUT SEPTAL INFARCT, AGE INDETERMINATE ST-T WAVE ABNORMALITY IN HIGH LATERAL LEADS- CONSIDER ISCHEMIA BASELINE ARTIFACT- I, II, III, AVR, AVL, AVF ABNORMAL ECG Electronically Signed On 02-23-2020 16:43:13 CDT by Tai Lara D.O.
[2020-02-23 16:02] LABS: Lactic Acid 2.7 mmol/L (0.7-2.1)
[2020-02-23 16:45] LABS: Reflex Lactic Acid Yes or No Add Lactic
--- NOTE | 2020-02-23 18:18 | ADMGEN ---
This patient, Toni Bernal, was admitted to [facility] Surg Room 305-02. Patient/family oriented to hospital policies and general routines including ID bracelet, bed and alarms, visiting hours, pain management, procedures, bathroom and other care routines, personal items, smoking policy, room service/diet, and visiting hours. Valuables list has been completed. Information on how to activate the Rapid Response Team has been discussed. Patient/Family are encouraged to report perceived risks to care and to ask questions if they do not understand what they are told or what they should do.
[2020-02-23 18:35] LABS: Lactic Acid 2.1 mmol/L (0.7-2.1)
[2020-02-23 21:14] LABS: Glucose Point of Care 190 (65-105)
[2020-02-23] MEDS: carvediloL 6.25 MG TABLET PO (22:00)
[2020-02-23] MEDS: TICAGRELOR 90 MG TABLET PO (22:00)
[2020-02-24] VITALS (9 sets, daily range): BP systolic 130–155; BP diastolic 68–74; PULSE 66–91; RESP 16–18; TEMP 36.5–36.9; O2SAT 94–98
--- NOTE | 2020-02-24 01:16 | PM.IMHP ---
H&P: HPI History of Present Illness Chief complaint: weakness Narrative: Date and time of patient contact: 02/24/2020 at 1:20 a.m. Toni Bernal is a 69 year old male with a past medical history of Parkinson's related dementia, hypertension, and recent hospitalization from UTI who presented to the ER from home via EMS due to increased confusion. At the time of the patient's last admission on 02/01/2020 the patient had been residing at [facility]. The patient was discharged from the hospital on the and at that time the family decided to take the patient home as they were concerned about the patient possibly getting COVID-19 at the nursing facility. The patient is alert and oriented times 1-2 at baseline according to prior documentation. The patient reportedly had increased confusion and arrived to the ER around 1:00 p.m. patient's last known normal had been the evening before. The patient was reportedly leaning to the right side and had right facial droop and weakness to the left side of his body. At the time of my evaluation the patient was moving both sides of his body equally. His speech was slow but not slurred and his word choice was appropriate. The patient at this time was oriented to the fact that he was in a hospital and could tell me his name. He denied being confused and denied any other complaints. However when I palpated the patient's abdomen he had some suprapubic tenderness. He denied any dysuria or urinary frequency or urgency. However, the patient is wearing a depends and has had episodes of urinary incontinence. To the ER note it appears the family did not come to the ER with the patient. Review of Systems Review of Systems: ROS unobtainable: Yes unobtainable due to medical condition and unobtainable due to mental status [facility] Past Medical History Medical History (Updated 02/24/20 @ 02:58 by Radhika Brunson DO) Arthritis Coronary artery disease Diabetes Essential hypertension GERD (gastroesophageal reflux disease) Gum disease Hard of hearing Hyperlipidemia Parkinson's disease Parkinson's disease dementia Surgical History Surgical History (Updated 02/24/20 @ 02:58 by Radhika Brunson DO) History of cardiac catheterization Cardiac catheterization with stent to the mid RCA October 2017. Repeat cardiac catheterization due to chest pain November 2018 with 95% stenosis mid RCA just prior to prior stent with subsequent stent placement, 70% stenosis distal RCA proximal to the diagonal branch with stent placement, 70% stenosis of distal RCA with stent placement History of tonsillectomy Age 18 Skin lesion of back Removed Family History Family History (Updated 02/24/20 @ 01:20 by Radhika Brunson DO) Mother Diabetes mellitus Heart disease Father Diabetes mellitus Heart disease Social History Social History (Updated 02/24/20 @ 02:59 by Radhika Brunson DO) Social History: Primary care provider: Dr. Jozef Molina Code status: Full code Smoking status: Never smoker Alcohol intake: never Substance use: never Substance use type: does not use Gender identity (if verbalized by the patient): Male Spiritual care concerns: No Agree to blood products: Yes Meds Home Medications and Allergies Home Medications Medication Instructions Recorded Confirmed Type Brilinta 90 mg PO BID 08/29/19 02/23/20 History aspirin 81 mg PO DAILY 08/29/19 02/23/20 History atorvastatin 40 mg PO QAM 08/29/19 02/23/20 History carbidopa-levodopa [Sinemet] 1 tablet PO TIDWM 08/29/19 02/23/20 History carvedilol 6.25 mg PO BID 08/29/19 02/23/20 History glimepiride 4 mg PO BID 08/29/19 02/23/20 History metformin 1,000 mg PO BID 08/29/19 02/23/20 History celecoxib [Celebrex] 200 mg PO QPM 02/01/20 02/23/20 History pantoprazole [Protonix] 40 mg PO QAM 02/23/20 02/23/20 History Allergies Allergy/AdvReac Type Severity Reaction Status Date / Time No Known Aller
[2020-02-24 09:01] LABS: Glucose Point of Care 285 (65-105)
[2020-02-24 09:03] LABS: Troponin I 0.024 ng/mL (0.000-0.034)
[2020-02-24] MEDS: carvediloL 6.25 MG TABLET PO ×2 (09:23→20:51)
[2020-02-24] MEDS: metFORMIN HCL 500 MG TABLET 1000 MG PO ×2 (09:23→17:21)
[2020-02-24] MEDS: TICAGRELOR 90 MG TABLET PO ×2 (09:23→20:51)
[2020-02-24] MEDS: ATORVASTATIN 40 MG TABLET PO (09:23)
[2020-02-24] MEDS: GLIMEPIRIDE 2 MG TABLET 4 MG PO ×2 (09:23→17:21)
[2020-02-24] MEDS: PANTOPRAZOLE 40 MG TABLET PO (09:23)
[2020-02-24] MEDS: ASPIRIN 81 MG ENTERIC TABLET PO (09:24)
[2020-02-24] MEDS: CARBIDOPA/LEVODOPA 25/100 MG TABLET 1 TABLET PO ×3 (09:24→17:21)
--- NOTE | 2020-02-24 09:48 | PC.NURSE ---
Pt refusing insulin, Nini notified, and is aware of pt's current blood sugar and refusal.
[2020-02-24 12:26] LABS: Glucose Point of Care 228 (65-105)
--- NOTE | 2020-02-24 15:10 | PM.IMPN ---
Progress Note: A&P Assessment and Plan (1) Bacteriuria with pyuria: Code(s): R82.71 - Bacteriuria; R82.81 - Pyuria Status: Acute Assessment and Plan: -----UA suspicious for UTI and patient has 1 blood culture positive for gram-negative bacilli. Will continue ceftriaxone at this time. Last time he was here his blood cultures were negative and he grew ceftriaxone sensitive E coli. Will continue with that and adjust as needed until microbiology reports are back. Patient is feeling great, vitals are stable, no leukocytosis. (2) Weakness: Code(s): R53.1 - Weakness Status: Acute Assessment and Plan: -----likely due to bacteremia and UTI in addition to baseline Parkinson's. MRI is negative, no CVA. 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 See above. Continue ceftriaxone at this time. Patient appears stable. Family updated Time Spent With Patient Time with patient: 25 - 35 minutes Subjective Date/time seen: 02/24/20 15:10 Interval history: Pt is a 69 y/o male here for UTI bacteremia. Patient was seen today and had no complaints. He specifically denied nausea, vomiting, fevers, chills, constipation, diarrhea, chest pain, sob, or abdominal pain. He says he is in the hospital to get better but does not seem to fully understand why he is here. I called his son and updated him. Review of Systems Review of Systems: All systems reviewed & are unremarkable except as noted in HPI and below Exam Narrative: Exam Narrative: General: Well developed well nourished patient resting comfortably in bed in NAD HEENT: normocephalic Neck: supple Neuro: Alert and oriented to himself, location, year but was unable to tell me the date and the president. Cranial nerves 2-12 intact. Equal strength the upper lower extremities CV:RRR Resp:CTA Abd: Soft, non distended. No pain to palpation. Positive bowel sounds Extremities: No swelling, erythema, or pain to palpation. Objective Data Vital Signs Vital Signs: Vital Signs - 24 hr 02/23/20 17:01 02/23/20 18:06 02/23/20 18:20 Temperature 98.1 F Pulse Rate 88 88 82 Respiratory Rate 16 18 18 Blood Pressure 125/65 115/64 150/64 H Pulse Oximetry 97 99 02/23/20 19:29 02/23/20 22:00 02/24/20 00:00 Temperature 98.8 F Pulse Rate 88 84 81 Respiratory Rate 20 18 Blood Pressure 139/59 L Pulse Oximetry 99 02/24/20 04:00 02/24/20 06:00 02/24/20 08:00 Temperature 98.0 F Pulse Rate 81 86 80 Respiratory Rate 18 Blood Pressure 155/68 H Pulse Oximetry 95 Intake/Output Intake/Output: Intake & Output 02/21/20 02/22/20 02/23/20 02/24/20 23:59 23:59 23:59 23:59 Intake Total 1050 480 Balance 1050 480 Meds/Results Medications: Active Medications Generic Name Dose Route Start Last Admin Trade Name Freq PRN Reason Stop Dose Admin Aspirin 81 mg 02/24/20 09:00 02/24/20 09:24 Aspirin Ec PO 81 mg DAILY CHELSEY Administration Atorvastatin Calcium 40 mg 02/24/20 09:00 02/24/20 09:23 Lipitor PO 40 mg QAM CHELSEY Administration Carbidopa/Levodopa 1 tablet 02/24/20 08:00 02/24/20 13:48 Sinemet 25/100 Mg PO 1 tablet TIDWM CHELSEY Administration Carvedilol 6
--- NOTE | 2020-02-24 15:50 | WPDNEURCNPN ---
Assessment and Plan Assessment and plan (1) Bacteremia: Code(s): R78.81 - Bacteremia Status: Acute (2) Bacteriuria with pyuria: Code(s): R82.71 - Bacteriuria; R82.81 - Pyuria Status: Acute (3) Weakness: Code(s): R53.1 - Weakness Status: Acute (4) Acute UTI: Code(s): N39.0 - Urinary tract infection, site not specified Status: Acute (5) Sepsis: Qualifiers: Sepsis acute organ dysfunction status: without acute organ dysfunction Sepsis type: sepsis due to unspecified organism Qualified Code(s): A41.9 - Sepsis, unspecified organism Code(s): A41.9 - Sepsis, unspecified organism Status: Resolved (6) Acute UTI: Code(s): N39.0 - Urinary tract infection, site not specified Status: Acute (7) Hypertension: Qualifiers: Hypertension type: essential hypertension Qualified Code(s): I10 - Essential (primary) hypertension Code(s): I10 - Essential (primary) hypertension Status: Chronic (8) Parkinson's disease: Code(s): G20 - Parkinson's disease Status: Chronic (9) Diabetes mellitus: Qualifiers: Diabetes mellitus type: type 2 Diabetes mellitus skilled nursing insulin use: without skilled nursing use Diabetes mellitus complication status: without complication Qualified Code(s): E11.9 - Type 2 diabetes mellitus without complications Code(s): E11.9 - Type 2 diabetes mellitus without complications Status: Acute (10) Elevated troponin: Code(s): R79.89 - Other specified abnormal findings of blood chemistry Status: Acute (11) Diabetic neuropathy: Code(s): E11.40 - Type 2 diabetes mellitus with diabetic neuropathy, unspecified Status: Acute Additional Plan the patient will need extensive PT and OT and gait training and I will recommend a cervical MRI to make sure he does not have any significant spinal cord compression which could be responsible for his lower extremity weakness I will orderThe MRI of the cervical spine without contrast Consult date: 02/24/20 Time Seen: 15:00 HPI: Toni Bernal is a 69 year old male who is admitted because of generalized weakness and along with urinary tract infection along with a history of having had Parkinson's disease for which he is on carbidopa levodopa The patient was here not too long ago treated for UTI and again has urinary tract infection and better than yesterday he denies any headache nausea vomiting chest pain shortness of breath fever chills sore throat. Os is specifically he says that he has not been able to walk for some time and complains of weakness of the legs however is able to move the legs in the bed and lifted from the bed up He definitely is cognitively impaired I do not know what his baseline is and he does have component of dementia the brain MRI is normal the question is as a neurologist that is all parkinsonian syndrome/Parkinson's disease or does he have any evidence of the cervical spondylosis of any significant degree responsible for his lower extremity weakness Review of Systems Review of Systems: All systems reviewed & are unremarkable except as noted in HPI and below PMFSH Past Medical History Medical History Arthritis Coronary artery disease Diabetes Essential hypertension GERD (gastroesophageal reflux disease) Gum disease Hard of hearing Hyperlipidemia Parkinson's disease Parkinson's disease dementia Surgical History Surgical History History of cardiac catheterization Cardiac catheterization with stent to the mid RCA October 2017. Repeat cardiac catheterization due to chest pain November 2018 with 95% stenosis mid RCA just prior to prior stent with subsequent stent placement, 70% stenosis distal RCA proximal to the diagonal branch with stent placement, 70% stenosis of distal RCA with stent placement History of tons
[2020-02-24 21:01] LABS: Glucose Point of Care 174 (65-105)
[2020-02-25] VITALS (10 sets, daily range): BP systolic 141–165; BP diastolic 69–80; PULSE 70–90; RESP 16–18; TEMP 36.2–36.9; O2SAT 95–98
[2020-02-25 07:41] LABS: Hematocrit 36.8 % (42.0-52.0); Mean Corpuscular HGB Conc 32.6 g/dl (32-36); Mean Corpuscular Hemoglobin 30.1 pg (26-34); Mean Corpuscular Volume 92.2 fl (80-100); Platelet Count Result 149 k/mm3 (150-375); Red Blood Count 3.99 M/mm3 (4.6-6.20); Red Cell Distribution Width 14.7 % (11.5-14.5); White Blood Count 5.3 K/mm3 (4.5-10.0)
[2020-02-25 08:27] LABS: Blood Urea Nitrogen 14 mg/dL (9-20); CRP 1.9 mg/dL (<1.0); Calcium 10.2 mg/dL (8.4-10.2); Carbon Dioxide 28 mmol/L (22-30); Chloride 103 mmol/L (98-107); Estimated CRCL calculation 77 ml/min; Estimated Glomerular Filt Rate > 60; Glucose 145 mg/dL (75-110); Magnesium 1.5 mg/dL (1.6-2.3); Potassium 4.1 mmol/L (3.4-5.0); Sodium 138 mmol/L (137-145)
[2020-02-25] MEDS: ASPIRIN 81 MG ENTERIC TABLET PO (08:36)
[2020-02-25] MEDS: metFORMIN HCL 500 MG TABLET 1000 MG PO ×2 (08:37→16:34)
[2020-02-25] MEDS: CARBIDOPA/LEVODOPA 25/100 MG TABLET 1 TABLET PO ×3 (08:37→16:34)
[2020-02-25] MEDS: carvediloL 6.25 MG TABLET PO ×2 (08:37→20:43)
[2020-02-25] MEDS: PANTOPRAZOLE 40 MG TABLET PO (08:37)
[2020-02-25] MEDS: TICAGRELOR 90 MG TABLET PO ×2 (08:37→20:43)
[2020-02-25] MEDS: ATORVASTATIN 40 MG TABLET PO (08:37)
[2020-02-25] MEDS: GLIMEPIRIDE 2 MG TABLET 4 MG PO ×2 (08:38→16:34)
[2020-02-25 09:00] LABS: Glucose Point of Care 172 (65-105)
--- NOTE | 2020-02-25 11:28 | PM.IMPN ---
Progress Note: A&P Assessment and Plan (1) Acute UTI: Code(s): N39.0 - Urinary tract infection, site not specified Status: Acute Assessment and Plan: -----confirmed E coli UTI which is also and 1 blood culture. The urine culture is sensitive to ceftriaxone so we will continue that. The patient seems to be improving. He worked with PT yesterday and did not ambulate but was out of bed. Hopefully his weakness will improve with therapy and treatment. Will continue IV antibiotics at this time, of IV antibiotics. He will go home on oral antibiotics. (2) Weakness: Code(s): R53.1 - Weakness Status: Acute Assessment and Plan: -----likely due to bacteremia and UTI in addition to baseline Parkinson's. MRI is negative, no CVA. Cervical spine MRI shows mild disc bulging, no acute issues. Continue PT and OT. Mag slightly low, will be replaced. 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 See above. Continue ceftriaxone at this time. Patient appears stable. Family updated Subjective Date/time seen: 02/25/20 11:28 Interval history: Pt is a 69 y/o male here for UTI bacteremia. Patient was seen today and had no complaints. He specifically denied nausea, vomiting, fevers, chills, constipation, diarrhea, chest pain, sob, or abdominal pain. He says he is in the hospital due to UTI (improved) He mentions that TJ is actually his nephew but he lives with him and his information can be shared with him. Exam Narrative: Exam Narrative: General: Well developed well nourished patient resting comfortably in bed in NAD HEENT: normocephalic Neck: supple Neuro: Alert and oriented to himself, location, year but was unable to tell me the month and the president. Cranial nerves 2-12 intact. Equal strength the upper lower extremities CV:RRR Resp:CTA Abd: Soft, non distended. No pain to palpation. Positive bowel sounds Extremities: No swelling, erythema, or pain to palpation. Objective Data Vital Signs Vital Signs: Vital Signs - 24 hr 02/24/20 12:00 02/24/20 14:00 02/24/20 16:00 Temperature 98.4 F Pulse Rate 80 91 66 Respiratory Rate 16 Blood Pressure 130/74 Pulse Oximetry 98 02/24/20 20:51 02/24/20 22:00 02/25/20 02:00 Temperature 97.7 F 98.4 F Pulse Rate 66 81 80 Respiratory Rate 18 18 Blood Pressure 143/69 H 145/78 H Pulse Oximetry 94 95 02/25/20 04:00 02/25/20 06:00 02/25/20 08:00 Temperature 97.2 F L Pulse Rate 75 78 77 Respiratory Rate 18 Blood Pressure 165/80 H Pulse Oximetry 97 Intake/Output Intake/Output: Intake & Output 02/22/20 02/23/20 02/24/20 02/25/20 23:59 23:59 23:59 23:59 Intake Total 1050 970 390 Balance 1050 970 390 Meds/Results Medications: Active Medications Generic Name Dose Route Start Last Admin Trade Name Freq PRN Reason Stop Dose Admin Aspirin 81 mg 02/24/20 09:00 02/25/20 08:36 Aspirin Ec PO 81 mg DAILY CHELSEY Administration Atorvastatin Calcium 40 mg 02/24/20 09:00 02/25/20 08:37 Lipitor PO 40 mg QAM CHELSEY Administration Carbidopa/Levodopa 1 tablet 02/24/20 08:00 02/25/20 08:37 Sinemet 25/100 Mg PO 1 tablet TIDWM CHELSEY Administration Carvedilol 6.25 mg 02/23/20 21
[2020-02-25 12:27] LABS: Glucose Point of Care 219 (65-105)
[2020-02-25 16:58] LABS: Glucose Point of Care 170 (65-105)
--- NOTE | 2020-02-25 16:58 | WPDNEUROPN ---
Progress Note: A&P Assessment and Plan (1) Diabetic neuropathy: Code(s): E11.40 - Type 2 diabetes mellitus with diabetic neuropathy, unspecified Status: Acute (2) Acute UTI: Code(s): N39.0 - Urinary tract infection, site not specified Status: Acute (3) Hypertension: Qualifiers: Hypertension type: essential hypertension Qualified Code(s): I10 - Essential (primary) hypertension Code(s): I10 - Essential (primary) hypertension Status: Chronic (4) Parkinson's disease: Code(s): G20 - Parkinson's disease Status: Chronic (5) Diabetes mellitus: Qualifiers: Diabetes mellitus type: type 2 Diabetes mellitus shelter insulin use: without terminal supervisor use Diabetes mellitus complication status: without complication Qualified Code(s): E11.9 - Type 2 diabetes mellitus without complications Code(s): E11.9 - Type 2 diabetes mellitus without complications Status: Acute Additional Plan T RC consult see if he qualifies with diagnosis we have Parkinson's dementia and gait disorder Review of Systems Review of Systems: All systems reviewed & are unremarkable except as noted in HPI and below Exam Const: General: comfortable and no acute distress HENMT: General nose exam: Normal nares present Mouth: Yes moist mucous membranes Eyes: General: appearance normal, both eyes and all related structures Neck: Neck: supple and no JVD Resp: Effort & Inspection: normal respiratory effort Auscultation: clear to auscultation bilaterally Cardio: Rate: regular rate Rhythm: regular rhythm GI: Auscultation: normal bowel sounds Skin: General skin exam: normal color and no rashes or lesions noted Neuro: Other: evidence of [id number] dementia generalized weakness lower extremity more so than the upper extremities which all is much better than my previous examination yesterday Extrem: General: normal to inspection Psych: Other: [id number] dementia Objective Data Vital Signs Vital Signs: Vital Signs - 24 hr 02/24/20 20:51 02/24/20 22:00 02/25/20 02:00 Temperature 36.5 C 36.9 C Pulse Rate 66 81 80 Respiratory Rate 18 18 Blood Pressure 143/69 H 145/78 H Pulse Oximetry 94 95 02/25/20 04:00 02/25/20 06:00 02/25/20 08:00 Temperature 36.2 C L Pulse Rate 75 78 77 Respiratory Rate 18 Blood Pressure 165/80 H Pulse Oximetry 97 02/25/20 14:00 Temperature 36.6 C Pulse Rate 84 Respiratory Rate 16 Blood Pressure 141/69 H Pulse Oximetry 97 Intake/Output Intake/Output: Intake & Output 02/22/20 02/23/20 02/24/20 02/25/20 23:59 23:59 23:59 23:59 Intake Total 1050 970 390 Balance 1050 970 390 Meds/Results Medications: Active Medications Generic Name Dose Route Start Last Admin Trade Name Freq PRN Reason Stop Dose Admin Aspirin 81 mg 02/24/20 09:00 02/25/20 08:36 Aspirin Ec PO 81 mg DAILY CHELSEY Administration Atorvastatin Calcium 40 mg 02/24/20 09:00 02/25/20 08:37 Lipitor PO 40 mg QAM CHELSEY Administration Carbidopa/Levodopa 1 tablet 02/24/20 08:00 02/25/20 16:34 Sinemet 25/100 Mg PO 1 tablet TIDWM CHELSEY Administration Carvedilol 6.25 mg 02/23/20 21:10 02/25/20 08:37 Coreg PO 6.25 mg Q12HR CHELSEY Administration Dextrose 12.5 gm 02/23/20 20:38 Dextrose 50% Syringe IV PUSH PRN PRN Hypoglycemia Protocol Glimepiride 4 mg 02/24/20 08:00 02/25/20 16:34 Amaryl PO 4 mg BIDWM CHELSEY Administration Glucagon 1 mg 02/23/20 20:38 Glucagon For Inj IM PRN PRN Hypoglycemia Protocol Glucose 15 gm 02/23/20 20:38 Glutose 15 PO PRN PRN Hypoglycemia Protocol Dextrose 1,000 mls @ 100 mls/hr 02/23/20 20:38 Dextrose 5% 1,000 Ml IVPB PRN PRN Hypoglycemia Protocol Ceftriaxone Sodium/Dextrose 1 gm in 50 mls @ 100 mls/hr 02/24/20 15:00 02/25/20 15:01 Rocephin 1 Gm/D5w 50 Ml IVPB 100 mls/hr
[2020-02-25] MEDS: MAGNESIUM OXIDE 200 MG TABLET PO (20:43)
[2020-02-25 21:46] LABS: Glucose Point of Care 148 (65-105)
[2020-02-26] VITALS (7 sets, daily range): BP systolic 132–175; BP diastolic 61–76; PULSE 68–91; RESP 16–18; TEMP 36.4–36.6; O2SAT 97–98
[2020-02-26] MEDS: metFORMIN HCL 500 MG TABLET 1000 MG PO ×2 (08:51→17:08)
[2020-02-26] MEDS: MAGNESIUM OXIDE 200 MG TABLET PO ×2 (08:51→20:29)
[2020-02-26] MEDS: GLIMEPIRIDE 2 MG TABLET 4 MG PO ×2 (08:51→17:08)
[2020-02-26] MEDS: PANTOPRAZOLE 40 MG TABLET PO (08:51)
[2020-02-26] MEDS: CARBIDOPA/LEVODOPA 25/100 MG TABLET 1 TABLET PO ×3 (08:51→17:09)
[2020-02-26] MEDS: ATORVASTATIN 40 MG TABLET PO (08:51)
[2020-02-26] MEDS: ASPIRIN 81 MG ENTERIC TABLET PO (08:52)
[2020-02-26] MEDS: TICAGRELOR 90 MG TABLET PO ×2 (08:52→20:29)
[2020-02-26] MEDS: carvediloL 6.25 MG TABLET PO ×2 (08:52→20:29)
[2020-02-26 09:11] LABS: Glucose Point of Care 211 (65-105)
[2020-02-26 11:50] LABS: Glucose Point of Care 300 (65-105)
--- NOTE | 2020-02-26 12:34 | PM.IMPN ---
Progress Note: A&P Assessment and Plan (1) Acute UTI: Code(s): N39.0 - Urinary tract infection, site not specified Status: Acute Assessment and Plan: -----confirmed E coli UTI which is also and 1 blood culture. The urine culture is sensitive to ceftriaxone so we will continue that. The patient seems to be improving. He worked with PT yesterday and did not ambulate well. Hopefully his weakness will improve with therapy and treatment but with his baseline Parkinson's, part of this is likely chronic. Will continue IV antibiotics at this time and he will go home on oral abx. (2) Weakness: Code(s): R53.1 - Weakness Status: Acute Assessment and Plan: -----likely due to bacteremia and UTI in addition to baseline Parkinson's. MRI is negative, no CVA. Cervical spine MRI shows mild disc bulging, no acute issues. Continue PT and OT. (3) Parkinson's disease: Code(s): G20 - Parkinson's disease Status: Chronic Assessment and Plan: -----chronic, continue Sinemet. I spoke to the nephew who is interested in [facility] if the patient qualifies. If not, they will want to do home health although they did not have a good experience with home health last time. They would like a different company. (4) Diabetes mellitus: Qualifiers: Diabetes mellitus type: type 2 Diabetes mellitus nursing home insulin use: without nursing home use Diabetes mellitus complication status: without complication Qualified Code(s): E11.9 - Type 2 diabetes mellitus without complications Code(s): E11.9 - Type 2 diabetes mellitus without complications Status: Acute Assessment and Plan: -----last glucose 300. Continue Amaryl and metformin. Patient has been refusing insulin (5) Bacteremia: Code(s): R78.81 - Bacteremia Status: Acute Assessment and Plan: -----likely secondary to UTI. See above. Continue ceftriaxone at this time. Patient appears stable. Family updated Subjective Date/time seen: 02/26/20 12:34 Interval history: Patient is 69-year-old male here for UTI bacteremia who was seen today. He has no complaints today. He specifically denies nausea, vomiting, fevers, chills, constipation, diarrhea, chest pain, sob, or abdominal pain. His last bowel movement was yesterday. I spoke to his nephew, LUZ ELENA and the plan is to get a TRC consult tomorrow. Exam Narrative: Exam Narrative: General: Well developed well nourished patient resting comfortably in the chair in NAD HEENT: normocephalic Neck: supple Neuro: Alert and oriented to himself, location, year but was unable to tell me the month and the president. Cranial nerves 2-12 intact. Equal strength the upper lower extremities CV:RRR Resp:CTA Abd: Soft, non distended. No pain to palpation. Positive bowel sounds Extremities: No swelling, erythema, or pain to palpation. Objective Data Vital Signs Vital Signs: Vital Signs - 24 hr 02/25/20 14:00 02/25/20 16:00 02/25/20 20:00 Temperature 97.9 F Pulse Rate 84 83 90 Respiratory Rate 16 Blood Pressure 141/69 H Pulse Oximetry 97 02/25/20 20:43 02/25/20 21:30 02/26/20 00:00 Temperature 97.8 F Pulse Rate 70 84 83 Respiratory Rate 18 Blood Pressure 158/75 H Pulse Oximetry 98 02/26/20 04:00 02/26/20 06:00 02/26/20 08:00 Temperature 97.5 F L Pulse Rate 88 91 81 Respiratory Rate 16 Blood Pressure 175/76 H Pulse Oximetry 97 Intake/Output Intake/Output: Intake & Output 02/23/20 02/24/20 02/25/20 02/26/20 23:59 23:59 23:59 23:59 Intake Total 1050 970 490 540 Balance 1050 970 490 540 Meds/Results Medications: Active Medications Generic Name Dose Route Start Last Admin Trade Name Freq PRN Reason Stop Dose Admin Aspirin 81 mg 02/24/20 09:00 02/26/20 08:52 Aspirin Ec PO 81 mg DAILY CHELSEY Administration Atorvastatin Calcium 40 mg 02/24/20 09:00 02/26/20 08:51 Lipitor P
--- NOTE | 2020-02-26 17:22 | WPDNEUROPN ---
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 computer operator insulin use: without long-term use Diabetes mellitus complication status: without complication Qualified Code(s): E11.9 - Type 2 diabetes mellitus without complications Code(s): E11.9 - Type 2 diabetes mellitus without complications Status: Acute (4) Gait disorder: Code(s): R26.9 - Unspecified abnormalities of gait and mobility Status: Acute Additional Plan if the patient is deemed to be a good candidate for the T RC we can certainly help him by moving forward and also observe him by increasing his anti Parkinson's medications on the T RC Review of Systems Review of Systems: All systems reviewed & are unremarkable except as noted in HPI and below Exam Const: General: comfortable and no acute distress HENMT: General nose exam: Normal nares present Mouth: Yes moist mucous membranes Eyes: General: appearance normal, both eyes and all related structures Neck: Neck: supple and no JVD Resp: Effort & Inspection: normal respiratory effort Auscultation: clear to auscultation bilaterally Cardio: Rate: regular rate Rhythm: regular rhythm GI: Auscultation: normal bowel sounds Skin: General skin exam: normal color and no rashes or lesions noted Neuro: Other: patient is pleasantly mild to moderately demented however oriented x3 has gait disorder needs assistance in all the activities of daily living overall picture has improved since he is being treated here for the UTI I believe he will be a good candidate for T RC depending upon how they feel and our caregiver find out what will be the discharge planning from the TR see Extrem: General: normal to inspection Psych: Other: mild dementia Objective Data Vital Signs Vital Signs: Vital Signs - 24 hr 02/25/20 20:00 02/25/20 20:43 02/25/20 21:30 Temperature 36.6 C Pulse Rate 90 70 84 Respiratory Rate 18 Blood Pressure 158/75 H Pulse Oximetry 98 02/26/20 00:00 02/26/20 04:00 02/26/20 06:00 Temperature 36.4 C L Pulse Rate 83 88 91 Respiratory Rate 16 Blood Pressure 175/76 H Pulse Oximetry 97 02/26/20 08:00 Temperature Pulse Rate 81 Respiratory Rate Blood Pressure Pulse Oximetry Intake/Output Intake/Output: Intake & Output 02/23/20 02/24/20 02/25/20 02/26/20 23:59 23:59 23:59 23:59 Intake Total 1050 970 490 540 Balance 1050 970 490 540 Meds/Results Medications: Active Medications Generic Name Dose Route Start Last Admin Trade Name Freq PRN Reason Stop Dose Admin Aspirin 81 mg 02/24/20 09:00 02/26/20 08:52 Aspirin Ec PO 81 mg DAILY CHELSEY Administration Atorvastatin Calcium 40 mg 02/24/20 09:00 02/26/20 08:51 Lipitor PO 40 mg QAM CHELSEY Administration Carbidopa/Levodopa 1 tablet 02/24/20 08:00 02/26/20 17:09 Sinemet 25/100 Mg PO 1 tablet TIDWM CHELSEY Administration Carvedilol 6.25 mg 02/23/20 21:10 02/26/20 08:52 Coreg PO 6.25 mg Q12HR CHELSEY Administration Dextrose 12.5 gm 02/23/20 20:38 Dextrose 50% Syringe IV PUSH PRN PRN Hypoglycemia Protocol Glimepiride 4 mg 02/24/20 08:00 02/26/20 17:08 Amaryl PO 4 mg BIDWM CHELSEY Administration Glucagon 1 mg 02/23/20 20:38 Glucagon For Inj IM PRN PRN Hypoglycemia Protocol Glucose 15 gm 02/23/20 20:38 Glutose 15 PO PRN PRN Hypoglycemia Protocol Dextrose 1,000 mls @ 100 mls/hr 02/23/20 20:38 Dextrose 5% 1,000 Ml IVPB PRN PRN Hypoglycemia Protocol Ceftriaxone Sodium 2 gm in 100 mls @ 200 mls/hr 02/27/20 12:00 Rocephin 2 Gm/D5w 100 Ml IVPB Q24H S
[2020-02-26 17:42] LABS: Glucose Point of Care 169 (65-105)
[2020-02-27 06:00] VITALS: BP 152/74; PULSE 86; RESP 18; TEMP 36.3; O2SAT 98
[2020-02-27 06:37] LABS: Magnesium 1.5 mg/dL (1.6-2.3)
[2020-02-27 07:48] VITALS: BP 168/90; PULSE 94; RESP 18; TEMP 36.6; O2SAT 96
[2020-02-27] MEDS: MAGNESIUM SULF 1 GM/D5W 100 ML 1 GM/100 ML BAG IVPB (09:31)
[2020-02-27] MEDS: TICAGRELOR 90 MG TABLET PO (09:32)
[2020-02-27] MEDS: CARBIDOPA/LEVODOPA 25/100 MG TABLET 1 TABLET PO ×3 (09:33→18:13)
[2020-02-27] MEDS: MAGNESIUM OXIDE 200 MG TABLET PO (09:33)
[2020-02-27] MEDS: PANTOPRAZOLE 40 MG TABLET PO (09:33)
[2020-02-27 09:34] VITALS: PULSE 86
[2020-02-27] MEDS: ATORVASTATIN 40 MG TABLET PO (09:34)
[2020-02-27] MEDS: carvediloL 6.25 MG TABLET PO (09:34)
[2020-02-27] MEDS: ASPIRIN 81 MG ENTERIC TABLET PO (09:36)
[2020-02-27 10:43] LABS: Glucose Point of Care 243 (65-105)
--- NOTE | 2020-02-27 11:20 | PM.DS ---
DS: Admitting Diagnosis Admitting Diagnosis Admitting Diagnosis: Weakness DS: Discharge Diagnosis Discharge Diagnosis (1) Acute UTI: Code(s): N39.0 - Urinary tract infection, site not specified Status: Acute Assessment and Plan: -----confirmed E coli UTI which is also in 1/2 blood cultures. Pt was given ceftriaxone and sent home with oral abx at discharge. (2) Weakness: Code(s): R53.1 - Weakness Status: Acute Assessment and Plan: -----likely due to bacteremia and UTI in addition to baseline Parkinson's. MRI is negative, no CVA. Cervical spine MRI shows mild disc bulging, no acute issues. Continue PT and OT with home health. (3) Parkinson's disease: Code(s): G20 - Parkinson's disease Status: Chronic Assessment and Plan: -----chronic, continue Sinemet. (4) Diabetes mellitus: Qualifiers: Diabetes mellitus type: type 2 Diabetes mellitus long-term insulin use: without long-term use Diabetes mellitus complication status: without complication Qualified Code(s): E11.9 - Type 2 diabetes mellitus without complications Code(s): E11.9 - Type 2 diabetes mellitus without complications Status: Acute Assessment and Plan: -----last glucose 165 Continue Amaryl and metformin. (5) Bacteremia: Code(s): R78.81 - Bacteremia Status: Acute Assessment and Plan: -----likely secondary to UTI. See above. Patient appears stable. Family updated DS: Summary Hospital Course Reason for hospitalization: UTI weakness Hospital Course: Pt is a 69 y/o male who came here for weakness (more prominent on his R side) and increased falls found to have UTI bacteremia. Stroke w/u was negative. Weakness thought to be due to UTI and bacteremia. Pt was given ceftriaxone and discharged on cefdinir. Plan discussed with pt and nephew. Status at Discharge Overall status at discharge: patient is progressing back to baseline Time Spent with Patient Time attestation: Total time spent providing and/or coordinating discharge services:34 min Time spent: Greater than 30 minutes Exam Narrative: Exam Narrative: General: Well developed well nourished patient resting comfortably in the chair in NAD HEENT: normocephalic Neck: supple Neuro: Alert and oriented to himself, location, year but was unable to tell me the month and the president. Cranial nerves 2-12 intact. Equal strength the upper lower extremities CV:RRR Resp:CTA Abd: Soft, non distended. No pain to palpation. Positive bowel sounds Extremities: No swelling, erythema, or pain to palpation. DS: Data Data Completed and Pending Labs on day of discharge: Labs from last 24 hours 02/27/20 02/27/20 02/26/20 09:30 05:48 17:08 POC Capillary Glucose 243 H 169 H Magnesium 1.5 L 02/26/20 11:32 POC Capillary Glucose 300 H Magnesium Preliminary micro results at discharge 02/23/20 13:27 Blood Culture - Preliminary Blood Escherichia Coli 02/23/20 13:47 Blood Culture - Preliminary Blood Discharge Plan Discharge Attending physician on discharge: Dre Hopkins Consulting providers: Ludwin Valdes ; Nini Ramon ; Radhika Brunson ; Blaise Cornejo ; Eliecer Brandt ; Rubén [place] ; Tai Lara ; Javier Gallegos V. Discharging Clinician: Nini Ramon Anticipated Discharge Date/Time: 02/27/20 11:12 Patient Disposition: Home Health Service Activity: as tolerated Diet: diabetic Discharge Instructions: -please continue all of the antibiotics even if you start to feel better. Your coreg medication have been increased. -follow up with your primary care physician in 1-2 weeks after this stay -Signs and symptoms of low blood sugar include: Shakiness, dizziness, nausea, confusion, sweating, stomach aches and dizziness. If the symptoms occur you need to check your blood sugar. If it is less than 70, drink some ju
[2020-02-27] MEDS: GLIMEPIRIDE 2 MG TABLET 4 MG PO ×2 (12:35→18:12)
[2020-02-27] MEDS: metFORMIN HCL 500 MG TABLET 1000 MG PO ×2 (12:35→18:13)
[2020-02-27 14:00] VITALS: BP 110/70; PULSE 99; RESP 18; TEMP 36.4; O2SAT 95
[2020-02-27 18:16] LABS: Glucose Point of Care 165 (65-105)
[2020-02-27 18:17] LABS: Glucose Point of Care 253 (65-105)
--- NOTE | 2020-02-27 19:46 | PC.NURSE ---
This nurse called the son LUZ ELENA about this patients discharge @1200. The son stated he would be there around 5-6 oclock to brass pickler this patient. This nurse went through the discharge instructions and discharge medications with the family member and answered any remaining questions the family member had.
--- NOTE | 2020-02-27 19:54 | PC.NURSE ---
@1800 this nurse called LUZ ELENA to check in on the status of picking up his family member for discharge. The patient stated him and his family are, eating dinner and will be there to picket [employer] this patient when they are finished. This nurse reiterated the importance of picking up his family member and TJ stated he would be here to pick his family member up shortly.
== END 2020-02-27 19:30 | disposition home health service (06) | DRG 690 ==
LOC: ANHED 15:36 → ANH3MEDSUR 16:43
PROVIDERS: Physician Assistant; Admitting Provider Internal Medicine; Emergency Provider Emergency Medicine; PCP Family Medicine Adolescent Medicine; Visit Provider Internal Medicine
DX: N39.0 Urinary tract infection, site not specified (principal); R78.81 Bacteremia; B96.20 Unspecified Escherichia coli [E. coli] as the cause of diseases classified elsewhere; R53.1 Weakness; E11.42 Type 2 diabetes mellitus with diabetic polyneuropathy; G20 Parkinson's disease; F02.80 Dementia in other diseases classified elsewhere, unspecified severity, without behavioral disturbance, psychotic disturbance, mood disturbance, and anxiety; I10 Essential (primary) hypertension; M19.90 Unspecified osteoarthritis, unspecified site; K21.9 Gastro-esophageal reflux disease without esophagitis; E78.5 Hyperlipidemia, unspecified; R26.9 Unspecified abnormalities of gait and mobility; Z95.5 Presence of coronary angioplasty implant and graft; Z79.02 Long term (current) use of antithrombotics/antiplatelets; Z79.82 Long term (current) use of aspirin
CPT/HCPCS: 36415; 36600; 70450; 70553; 71046; 72141; 80048; 80053; 81001; 82140; 82805; 82948; 83605; 83735; 84100; 84484; 85025; 85027; 85610; 85730; 86140; 87040; 87077; 87086; 87088; 87186; 93005; 96361; 96365; 97110; 97116; 97162; 97165; 97530; 97535; 99285; A9270; A9577; G0378; J0696; J1815; J3475; J7030

== ENCOUNTER 2021-09-24 14:34 | Emergency (ER) | payer OTHER, MEDICARE, SELFPAY ==
--- NOTE | ~2021-09-24 | CT_ITS ---
EXAMINATION: CT cervical spine wo con DATE: 09/24/2021 15:27 INDICATION: Head injury TECHNIQUE: Computed tomography (CT) of the cervical spine was performed without intravenous contrast. The dose-length product (DLP) was 360.53 mGy-cm. Automated exposure control and iterative reconstruc tion technique were employed. COMPARISON: None FINDINGS: There is no fracture, dislocation, or subluxation. There is mild loss of intervertebral dis c space height at multiple levels in the cervical spine. The odontoid is intact. The prevertebral sof t tissues are normal. IMPRESSION: 1. Mild cervical spondylosis without acute findings. Reviewed, dictated and finalized at location [facility]
--- NOTE | ~2021-09-24 | CT_ITS ---
EXAMINATION: CT brain wo con INDICATION: Head injury COMPARISON: None TECHNIQUE: Standard unenhanced head CT. The dose-length product (DLP) was 605.33 mGy-cm. The mA was a djusted according to patient size. Iterative reconstruction technique was employed. FINDINGS: There is no acute intraparenchymal hemorrhage. No evidence of mass lesion. No evidence of a cute infarction. There is moderate periventricular and subcortical hypodensity probably related to sm all vessel ischemic disease. There is mild prominence of the sulci and ventricles related to cerebral atrophy. Moderate There are no extra-axial collections. There is no mass effect or midline shift. Th e orbits and soft tissues are unremarkable. The visualized sinuses and mastoid air cells are well aer ated. IMPRESSION: 1. No acute intracranial abnormality. 2. Age related findings. Reviewed, dictated and finalized at location [employer]
[2021-09-24 14:40] VITALS: BP 155/88; PULSE 114; RESP 18; TEMP 37.1; O2SAT 96
--- NOTE | 2021-09-24 14:49 | ED.FALL ---
HPI - Fall General Chief Complaint: Fall Stated Complaint: Fall, Head lac Time Seen by Provider: 09/24/21 14:41 Source: patient and EMS Mode of arrival: EMS Limitations: dementia History of Present Illness HPI Narrative: Patient is a 71-year-old male brought in by EMS from the [facility] after a ground-level fall. According to EMS it was a witnessed fall, he was at the dining room when he tripped and fell face first. No loss of consciousness. Patient has a laceration top of his forehead. Patient denies any neck pain, chest pain, abdominal pain, back pain, pelvic pain, hip pain or any extremity pain/injury. Patient is a poor historian due to history of dementia Related Data Home Medications Medication Instructions Recorded Confirmed aspirin 81 mg PO DAILY 08/29/19 02/23/20 glimepiride 8 mg PO DAILY 08/29/19 09/24/21 metformin 1,000 mg PO BID 08/29/19 09/24/21 bisacodyl [Dulcolax (bisacodyl)] 10 mg RECTAL DAILY PRN 09/24/21 09/24/21 dextran 70-hypromellose 1 drp EACH EYE 4-8XD PRN 09/24/21 09/24/21 hydrocodone-acetaminophen [[place]] 1 tablet PO Q6H PRN 09/24/21 09/24/21 hyoscyamine sulfate [Levsin] 0.125 mg PO QID PRN 09/24/21 09/24/21 lorazepam [Ativan] 0.5 mg PO BID PRN 09/24/21 09/24/21 lorazepam [Ativan] 0.5 mg PO QID PRN 09/24/21 09/24/21 morphine (PF) 5 mg PO Q4-5H PRN 09/24/21 09/24/21 ondansetron HCl [Zofran] 4 mg PO Q6H PRN 09/24/21 09/24/21 Allergies Allergy/AdvReac Type Severity Reaction Status Date / Time No Known Allergies Allergy Verified 09/24/21 18:49 Review of Systems Review of Systems: All systems reviewed & are unremarkable except as noted in HPI and below ROS unobtainable: Yes other (Dementia) PMFSH Past Medical History Medical History Arthritis Coronary artery disease Diabetes Diabetic neuropathy Essential hypertension Gait disorder GERD (gastroesophageal reflux disease) Gum disease Hard of hearing Hyperlipidemia Parkinson's disease Parkinson's disease dementia Surgical History Surgical History History of cardiac catheterization Cardiac catheterization with stent to the mid RCA October 2017. Repeat cardiac catheterization due to chest pain November 2018 with 95% stenosis mid RCA just prior to prior stent with subsequent stent placement, 70% stenosis distal RCA proximal to the diagonal branch with stent placement, 70% stenosis of distal RCA with stent placement History of tonsillectomy Age 18 Skin lesion of back Removed Family History Family History Mother Diabetes mellitus Heart disease Father Diabetes mellitus Heart disease Social History Social History Social History: Primary care provider: Dr. Jozef Molina Code status: Full code Smoking status: Never smoker Alcohol intake: never Substance use: never Substance use type: does not use Gender identity (if verbalized by the patient): Male Spiritual care concerns: No Agree to blood products: Yes Exam Const: General: cooperative, healthy appearing, comfortable, no acute distress, well developed, alert and awake Orientation/consciousness: oriented to person and No confusion Limitations: no limitations HENMT: Head: laceration (2 cm laceration frontal head) Ears: hearing grossly normal bilaterally, TM normal on the right and TM normal on the left General nose exam: Normal external nose present, Normal nares present and No nasal discharge present Face and sinus: normal facial exam Mouth: Yes Normal oral and palatal mucosa present, Yes lip normal, Yes tongue normal and Yes oropharynx normal Throat: posterior oropharynx normal, tonsils normal and uvula midline Eyes: General: appearance normal, both eyes and all related structures Pupils: Equal, round and reactive pupils present
[2021-09-24 16:55] LABS: Glucose Point of Care 488 mg/dl (65-105)
[2021-09-24] MEDS: LACTATED RINGERS 1,000 ML 999 ML IV CONT (17:33)
[2021-09-24 17:52] LABS: Basophils Absolute Auto 0.1 K/mm3 (0.0-0.1); Basophils Percent Auto 0.5 % (0.2-1.2); Eosinophils Percent Auto 0.3 % (0-4.4); Hematocrit 51.5 % (42.0-52.0); Hemoglobin 16.9 g/dL (14.0-18.0); Immature Granulocyte Absolute 0.04 K/mm3 (0.00-0.031); Immature Granulocyte Percent A 0.4 % (0-0.5); Lymphocytes Absolute Auto 1.09 K/mm3 (0.9-3.2); Lymphocytes Percent Auto 9.9 % (18.3-44.2); Mean Corpuscular HGB Conc 32.8 g/dl (32-36); Mean Corpuscular Hemoglobin 30.3 pg (26-34); Mean Corpuscular Volume 92.3 fl (80-100); Mean Platelet Volume 10.4 fl (7.4-10.4); Monocytes Absolute Auto 0.7 K/mm3 (0.1-0.6); Monocytes Percent Auto 6.1 % (2.6-8.5); Neutrophils Absolute Auto 9.1 K/mm3 (1.3-6.7); Neutrophils Percent Auto 82.8 % (45.5-73.1); Platelet Count Result 268 k/mm3 (150-375); Red Blood Count 5.58 M/mm3 (4.6-6.20); Red Cell Distribution Width 13.3 % (11.5-14.5)
[2021-09-24 18:23] LABS: Anion Gap 12 mmol/L (8-16); Blood Urea Nitrogen 26 mg/dL (9-20); Calcium 11.6 mg/dL (8.4-10.2); Carbon Dioxide 26 mmol/L (22-30); Chloride 105 mmol/L (98-107); Estimated CRCL calculation 72 ml/min; Estimated Glomerular Filt Rate > 60; Glucose 497 mg/dL (65-110); Sodium 143 mmol/L (137-145)
[2021-09-24] MEDS: INSULIN HUMAN REGULAR (*BKC) 100 UNITS/ML 10 UNITS IV PUSH (19:24)
[2021-09-24 19:58] LABS: Glucose Point of Care 422 mg/dl (65-105)
[2021-09-24 21:02] LABS: Glucose Point of Care 394 mg/dl (65-105)
[2021-09-24 21:41] VITALS: BP 158/81; PULSE 104; RESP 18; O2SAT 98
== END 2021-09-24 21:43 | disposition home or self-care (01) ==
PROVIDERS: Emergency Provider Emergency Medicine; PCP Internal Medicine
DX: E11.65 Type 2 diabetes mellitus with hyperglycemia (principal); S09.90XA Unspecified injury of head, initial encounter; M19.90 Unspecified osteoarthritis, unspecified site; I25.10 Atherosclerotic heart disease of native coronary artery without angina pectoris; E11.40 Type 2 diabetes mellitus with diabetic neuropathy, unspecified; I10 Essential (primary) hypertension; K21.9 Gastro-esophageal reflux disease without esophagitis; E78.5 Hyperlipidemia, unspecified; G20 Parkinson's disease; W01.0XXA Fall on same level from slipping, tripping and stumbling without subsequent striking against object, initial encounter; F02.80 Dementia in other diseases classified elsewhere, unspecified severity, without behavioral disturbance, psychotic disturbance, mood disturbance, and anxiety; Z79.82 Long term (current) use of aspirin; Z79.899 Other long term (current) drug therapy
CPT/HCPCS: 36415; 70450; 72125; 80048; 82948; 85025; 96361; 96374; 99284; J1815; J7120